=== PATIENT | male | born 1950 | race Caucasian/White ===

== ENCOUNTER → 2017-05-04 | Outpatient (CLI) | payer BC ==
[~2017-05-04] MED LIST: ACAR50; ACYC800; AMLO10 PO; ASPI325; ASPI81EC PO; ATOR20 PO; ATOR40TA PO; AZIT250 PO; CARDURA PO; CARV25 PO; COUMADIN PO; CYCL10 PO; Cardura2 MG PO; Cefpodoxime Pr200 MG PO; DABI75 PO; DIAZ5 PO; DILT180; DILT180 PO; DILT360ER; DOXA2 PO; DOXA4; DOXA4 PO; FURO20; FURO40 PO; GABA600 PO; GLIM4; GLIM4 PO; HYDACE5; HYDACE5 PO; HYDR1TAB94 PO; IBAN2.5 PO; INSULANI; JARDIANCE10 MG PO; JARDIANCE25 MG PO; K-Dur20 MEQ; LATA.005SO BOTHEYES; LISI20; LISI20 PO; LISI5 PO; LISINOPRIL 40MG PO; METF500 PO; METF500C; NAPR500 PO; NAPR550 PO; OMEP20ER; OMEP20ER PO; OXYACE5T PO; Ondansetron Odt8 MG SL; PIOG15; PIOG45 PO; POTA10T PO; POTASSIUM CHLORIDE 40 MEQ PO; PRAVACHOL 40 MG PO; PREG300 PO; Periogard473 ML MM; Prilosec Otc20 MG PO; RXCYCL10 PO; RXHYDACE PO; RXOXYACE PO; TIMO.5OPSO BOTHEYES; TRAM50; Tasprin325 MG PO; WARF2 PO; XARELTO20 MG PO; XTANDI40 MG PO; Zofran Odt4 MG SL; [UNRECOGNIZED DRUG - CODE] PO; [UNRECOGNIZED DRUG - OTHER]
== END ==
LOC: LAB SHORT 07:11 → PLD 07:11 → ATC 07:11 → EDSTATUS 07:44
DX: R31.9 Hematuria, unspecified (principal)
CPT/HCPCS: 88108

== ENCOUNTER 2017-05-11 08:00 | Day surgery (SDC) | payer BC ==
[~2017-05-11 08:00] MED LIST changes: -ACAR50; -ACYC800; -AZIT250 PO; -Cefpodoxime Pr200 MG PO; -DOXA2 PO; -Ondansetron Odt8 MG SL; -PREG300 PO; -TRAM50; -XTANDI40 MG PO; -Zofran Odt4 MG SL; -[UNRECOGNIZED DRUG - CODE] PO
[2017-12-16] MEDS ORDERED: Zofran Odt4 MG SL (11:26)
== END 2017-05-11 11:00 | disposition home or self-care (01) ==
LOC: WOUND 08:00
DX: Z48.00 Encounter for change or removal of nonsurgical wound dressing (principal); N30.11 Interstitial cystitis (chronic) with hematuria; E11.59 Type 2 diabetes mellitus with other circulatory complications; I25.84 Coronary atherosclerosis due to calcified coronary lesion; I42.9 Cardiomyopathy, unspecified; I48.2 Chronic atrial fibrillation
CPT/HCPCS: G0463

== ENCOUNTER 2017-07-27 00:20 | Day surgery (SDC) | payer BC ==
[~2017-07-27 00:20] MED LIST changes: +Prilosec Otc20 MG; -Prilosec Otc20 MG PO
== END 2017-07-27 22:45 | disposition home or self-care (01) ==
LOC: WOUND 00:20
DX: Z48.00 Encounter for change or removal of nonsurgical wound dressing (principal); E11.59 Type 2 diabetes mellitus with other circulatory complications; N30.41 Irradiation cystitis with hematuria; I25.84 Coronary atherosclerosis due to calcified coronary lesion; I42.8 Other cardiomyopathies; I48.2 Chronic atrial fibrillation
CPT/HCPCS: G0463

== ENCOUNTER 2017-07-29 01:16 | Day surgery (SDC) | payer BC | END 2017-07-29 22:40 | disposition home or self-care (01) | LOC: HBO 01:16 → WOUND 10:31 → HBO 11:02 | PROC: 5A05221 Extracorporeal Hyperbaric Oxygenation, Continuous (ICD-10-PCS; principal; 2017-07-29) | DX: N30.41 Irradiation cystitis with hematuria (principal); E11.59 Type 2 diabetes mellitus with other circulatory complications | CPT/HCPCS: 82947; G0277 ==

== ENCOUNTER 2017-07-30 11:42 | Day surgery (SDC) | payer BC | END 2017-07-30 22:48 | disposition home or self-care (01) | LOC: HBO 11:42 | PROC: 5A05221 Extracorporeal Hyperbaric Oxygenation, Continuous (ICD-10-PCS; principal; 2017-07-30) | DX: N30.41 Irradiation cystitis with hematuria (principal); E11.59 Type 2 diabetes mellitus with other circulatory complications; I25.84 Coronary atherosclerosis due to calcified coronary lesion | CPT/HCPCS: 82947; G0277 ==

== ENCOUNTER 2017-08-03 07:58 | Day surgery (SDC) | payer BC | END 2017-08-03 12:22 | disposition home or self-care (01) | LOC: HBO 07:58 → WOUND 11:43 → HBO 11:52 | PROC: 5A05221 Extracorporeal Hyperbaric Oxygenation, Continuous (ICD-10-PCS; principal; 2017-08-03) | DX: N30.41 Irradiation cystitis with hematuria (principal); E11.59 Type 2 diabetes mellitus with other circulatory complications; I25.84 Coronary atherosclerosis due to calcified coronary lesion | CPT/HCPCS: 82947; G0277 ==

== ENCOUNTER 2017-08-10 00:25 | Day surgery (SDC) | payer BC | END 2017-08-10 22:51 | disposition home or self-care (01) | LOC: HBO 00:25 | PROC: 5A05221 Extracorporeal Hyperbaric Oxygenation, Continuous (ICD-10-PCS; principal; 2017-08-10) | DX: N30.41 Irradiation cystitis with hematuria (principal); E11.59 Type 2 diabetes mellitus with other circulatory complications; I25.84 Coronary atherosclerosis due to calcified coronary lesion | CPT/HCPCS: 82947; G0277 ==

== ENCOUNTER 2017-08-12 00:06 | Day surgery (SDC) | payer BC | END 2017-08-12 22:37 | disposition home or self-care (01) | LOC: HBO 00:06 | PROC: 5A05221 Extracorporeal Hyperbaric Oxygenation, Continuous (ICD-10-PCS; principal; 2017-08-12) | DX: N30.41 Irradiation cystitis with hematuria (principal); E11.59 Type 2 diabetes mellitus with other circulatory complications; I25.84 Coronary atherosclerosis due to calcified coronary lesion | CPT/HCPCS: 82947; G0277 ==

== ENCOUNTER 2017-08-13 00:06 | Day surgery (SDC) | payer BC | END 2017-08-13 22:58 | disposition home or self-care (01) | LOC: HBO 00:06 | PROC: 5A05221 Extracorporeal Hyperbaric Oxygenation, Continuous (ICD-10-PCS; principal; 2017-08-13) | DX: N30.41 Irradiation cystitis with hematuria (principal); E11.59 Type 2 diabetes mellitus with other circulatory complications; I25.84 Coronary atherosclerosis due to calcified coronary lesion | CPT/HCPCS: 82947; G0277 ==

== ENCOUNTER 2017-08-17 00:21 | Day surgery (SDC) | payer BC | END 2017-08-17 22:52 | disposition home or self-care (01) | LOC: HBO 00:21 | PROC: 5A05221 Extracorporeal Hyperbaric Oxygenation, Continuous (ICD-10-PCS; principal; 2017-08-17) | DX: N30.41 Irradiation cystitis with hematuria (principal); E11.59 Type 2 diabetes mellitus with other circulatory complications; I25.84 Coronary atherosclerosis due to calcified coronary lesion | CPT/HCPCS: 82947; G0277 ==

== ENCOUNTER 2017-08-23 07:30 | Day surgery (SDC) | payer BC | END 2017-08-23 22:37 | disposition home or self-care (01) | LOC: HBO 07:30 | PROC: 5A05221 Extracorporeal Hyperbaric Oxygenation, Continuous (ICD-10-PCS; principal; 2017-08-23) | DX: N30.41 Irradiation cystitis with hematuria (principal); E11.59 Type 2 diabetes mellitus with other circulatory complications; I25.84 Coronary atherosclerosis due to calcified coronary lesion | CPT/HCPCS: 82947; G0277 ==

== ENCOUNTER 2017-08-24 00:54 | Day surgery (SDC) | payer BC | END 2017-08-24 23:35 | disposition home or self-care (01) | LOC: HBO 00:54 | PROC: 5A05221 Extracorporeal Hyperbaric Oxygenation, Continuous (ICD-10-PCS; principal; 2017-08-24) | DX: N30.41 Irradiation cystitis with hematuria (principal); E11.69 Type 2 diabetes mellitus with other specified complication; I25.84 Coronary atherosclerosis due to calcified coronary lesion | CPT/HCPCS: 82947; G0277 ==

== ENCOUNTER 2017-08-26 12:28 | Day surgery (SDC) | payer BC | END 2017-08-26 23:10 | disposition home or self-care (01) | LOC: HBO 12:28 | PROC: 5A05221 Extracorporeal Hyperbaric Oxygenation, Continuous (ICD-10-PCS; principal; 2017-08-26) | DX: N30.41 Irradiation cystitis with hematuria (principal); E11.59 Type 2 diabetes mellitus with other circulatory complications; I25.84 Coronary atherosclerosis due to calcified coronary lesion | CPT/HCPCS: 82947; G0277 ==

== ENCOUNTER 2017-08-26 16:47 | Day surgery (SDC) | payer BC | END 2017-08-26 23:11 | disposition home or self-care (01) | LOC: WOUND 16:47 | DX: Z48.00 Encounter for change or removal of nonsurgical wound dressing (principal); N30.41 Irradiation cystitis with hematuria; E11.59 Type 2 diabetes mellitus with other circulatory complications; I25.84 Coronary atherosclerosis due to calcified coronary lesion | CPT/HCPCS: G0463 ==

== ENCOUNTER 2017-08-31 00:28 | Day surgery (SDC) | payer BC | END 2017-08-31 22:45 | disposition home or self-care (01) | LOC: HBO 00:28 | PROC: 5A05221 Extracorporeal Hyperbaric Oxygenation, Continuous (ICD-10-PCS; principal; 2017-08-31) | DX: N30.41 Irradiation cystitis with hematuria (principal); E11.59 Type 2 diabetes mellitus with other circulatory complications; I25.84 Coronary atherosclerosis due to calcified coronary lesion | CPT/HCPCS: 82947; G0277 ==

== ENCOUNTER 2017-09-03 12:23 | Day surgery (SDC) | payer BC | END 2017-09-03 22:43 | disposition home or self-care (01) | LOC: HBO 12:23 | PROC: 5A05221 Extracorporeal Hyperbaric Oxygenation, Continuous (ICD-10-PCS; principal; 2017-09-03) | DX: N30.41 Irradiation cystitis with hematuria (principal); E11.59 Type 2 diabetes mellitus with other circulatory complications; I25.84 Coronary atherosclerosis due to calcified coronary lesion | CPT/HCPCS: 82947; G0277 ==

== ENCOUNTER 2017-09-13 08:00 | Day surgery (SDC) | payer BC | END 2017-09-13 11:21 | disposition home or self-care (01) | LOC: HBO 08:00 | PROC: 5A05221 Extracorporeal Hyperbaric Oxygenation, Continuous (ICD-10-PCS; principal; 2017-09-13) | DX: N30.41 Irradiation cystitis with hematuria (principal); E11.59 Type 2 diabetes mellitus with other circulatory complications; I25.84 Coronary atherosclerosis due to calcified coronary lesion | CPT/HCPCS: 82947; G0277 ==

== ENCOUNTER 2017-09-14 12:30 | Day surgery (SDC) | payer BC | END 2017-09-14 15:00 | disposition home or self-care (01) | LOC: HBO 12:30 | DX: N30.41 Irradiation cystitis with hematuria (principal); E11.59 Type 2 diabetes mellitus with other circulatory complications; I25.84 Coronary atherosclerosis due to calcified coronary lesion | CPT/HCPCS: 82947 ==

== ENCOUNTER 2017-09-16 08:00 | Day surgery (SDC) | payer BC | END 2017-09-16 11:08 | disposition home or self-care (01) | LOC: HBO 08:00 | PROC: 5A05221 Extracorporeal Hyperbaric Oxygenation, Continuous (ICD-10-PCS; principal; 2017-09-16) | DX: N30.41 Irradiation cystitis with hematuria (principal); E11.59 Type 2 diabetes mellitus with other circulatory complications; I25.84 Coronary atherosclerosis due to calcified coronary lesion | CPT/HCPCS: 82947; G0277 ==

== ENCOUNTER 2017-09-21 07:45 | Day surgery (SDC) | payer BC | END 2017-09-21 11:15 | disposition home or self-care (01) | LOC: HBO 07:45 → WOUND 08:09 → HBO 08:10 | PROC: 5A05221 Extracorporeal Hyperbaric Oxygenation, Continuous (ICD-10-PCS; principal; 2017-09-21) | DX: N30.41 Irradiation cystitis with hematuria (principal); E11.59 Type 2 diabetes mellitus with other circulatory complications; I25.84 Coronary atherosclerosis due to calcified coronary lesion | CPT/HCPCS: 82947; G0277 ==

== ENCOUNTER 2017-09-21 11:17 | Day surgery (SDC) | payer BC | END 2017-09-21 11:38 | disposition home or self-care (01) | LOC: HBO → WOUND 11:17 | DX: Z48.00 Encounter for change or removal of nonsurgical wound dressing (principal); N30.41 Irradiation cystitis with hematuria; E11.59 Type 2 diabetes mellitus with other circulatory complications; I25.84 Coronary atherosclerosis due to calcified coronary lesion | CPT/HCPCS: G0463 ==

== ENCOUNTER 2017-09-29 07:42 | Day surgery (SDC) | payer BC | END 2017-09-29 22:40 | disposition home or self-care (01) | LOC: HBO | PROC: 5A05221 Extracorporeal Hyperbaric Oxygenation, Continuous (ICD-10-PCS; principal; 2017-09-29) | DX: N30.41 Irradiation cystitis with hematuria (principal); E11.59 Type 2 diabetes mellitus with other circulatory complications; I25.84 Coronary atherosclerosis due to calcified coronary lesion | CPT/HCPCS: 82947; G0277 ==

== ENCOUNTER 2017-10-04 08:29 | Day surgery (SDC) | payer BC | END 2017-10-04 11:58 | disposition home or self-care (01) | LOC: HBO 08:29 | DX: N30.41 Irradiation cystitis with hematuria (principal); E11.59 Type 2 diabetes mellitus with other circulatory complications; I25.84 Coronary atherosclerosis due to calcified coronary lesion | CPT/HCPCS: 82947; G0277 ==

== ENCOUNTER 2017-12-17 15:28 | Inpatient (IN) | payer BC, MEDICARE ==
[~2017-12-17] VITALS: Ht 180.3 cm; Wt 92.2 kg
[~2017-12-17 15:28] MED LIST changes: -Prilosec Otc20 MG; +Prilosec Otc20 MG PO; +Zofran Odt4 MG SL
[2017-12-17 17:39] LABS: International Normalized Ratio 1.16; Prothrombin Time Results 11.8 Sec (9.7-11.5)
[2017-12-17 17:41] LABS: Source, Urine Clean Catch
[2017-12-17 18:00] LABS: Bilirubin, Urine Neg (Neg); Blood, Urine 5+ (Neg); Glucose Qualitative, Urine 4+ (Neg); Ketones, Urine Neg (Neg); Leukocyte Esterase, Urine Neg (Neg); Nitrite, Urine Neg (Neg); Protein, Urine 1+ (Neg); Urobilinogen, Urine NORM (Normal)
[2017-12-17 18:14] LABS: Appearance, Urine Hazy (Clear); Color, Urine Yellow (P-Yellow)
[2017-12-17 18:15] LABS: Bacteria Few /hpf; Red Blood Cells, Urine 50-100 /hpf (0-2); Squamous Epithelial Cells Not Seen /hpf (Few); White Blood Cells, Urine 0-2 /hpf (0-5)
[2017-12-17] MEDS ORDERED: [UNRECOGNIZED DRUG - CODE] PO (18:32)
[2017-12-17] MEDS ORDERED: LISI20 PO (21:19)
[2017-12-17] MEDS ORDERED: PREG300 PO (21:20)
[2017-12-17] MEDS ORDERED: ACYC800 (21:22)
[2017-12-17] MEDS ORDERED: TRAM50 (21:24)
[2017-12-17] MEDS ORDERED: ACAR50 (21:25)
[2017-12-17] MEDS ORDERED: XTANDI40 MG PO (21:27)
[2017-12-18 04:03] LABS: Hematocrit 33.2 % (37.0-53.0); Hemoglobin 10.5 g/dL (13.5-17.5); Mean Corpuscular HGB 27.4 pg (26.0-34.0); Mean Corpuscular HGB Conc 31.6 g/dL (31.5-36.5); Mean Corpuscular Volume 87 fL (80-100); Mean Platelet Volume 9.1 fL (9.1-12.4); Platelet Count 108 K/mm3 (150-400); RDW Coefficient Variation 17.4 % (11.7-14.2); RDW Standard Deviation 55.8 fL (35.1-46.3); Red Blood Cell Count 3.83 M/mm3 (4.30-5.90); White Blood Cell Count 1.66 K/mm3 (4.00-11.30)
[2017-12-18 04:23] LABS: Alanine Aminotransfer (ALT/SGP 19 U/L (12-78); Albumin, Blood 2.3 g/dL (3.4-5.0); Albumin/Globulin Ratio 0.7 (0.8-1.8); Alk Phos 169 U/L (50-136); Anion Gap 7 mmol/L (6-16); Aspartate Aminotrans (AST/SGOT 24 U/L (12-37); Bilirubin, Total 0.6 mg/dL (0.1-1.0); Blood Urea Nitrogen 18 mg/dL (8-24); Bun/Creatinine Ratio 22.3 (12.0-20.0); CO2, Blood 23 mmol/L (21-32); Calcium, Blood 7.8 mg/dL (8.5-10.1); Chloride, Blood 109 mmol/L (98-108); Creatinine, Blood 0.81 mg/dL (0.60-1.20); Globulin, Blood 3.5 g/dL (2.2-4.0); Glomerular Filtration Rate >60 (60-); Glucose, Blood 123 mg/dL (70-99); Potassium, Blood 3.9 mmol/L (3.5-5.5); Sodium, Blood 139 mmol/L (136-145); Total Protein, Blood 5.8 g/dL (6.4-8.2)
[2017-12-18 05:02] LABS: BAND PERCENT MAN 6 % (0-8); BASOPHILS PERCENT MAN 0 % (0-2); EOSINOPHILS ABSOLUTE MAN 0.08 K/mm3 (0.00-0.68); EOSINOPHILS PERCENT MAN 5 % (0-6); LYMPHOCYTES ABSOLUTE MAN 0.34 K/mm3 (0.84-5.20); LYMPHOCYTES PERCENT MAN 21 % (21-46); METAMYELOCYTE ABSOLUTE MAN 0.01 K/mm3 (0.00-0.00); METAMYELOCYTE PERCENT MAN 1 % (0-0); MONOCYTES ABSOLUTE MAN 0.29 K/mm3 (0.16-1.47); MONOCYTES PERCENT MAN 18 % (4-13); NEUTROPHILS ABSOLUTE MAN 0.91 K/mm3 (1.96-9.15); SEG NEUTROPHILS PERCENT MAN 49 % (41-73); TOTAL CELLS COUNTED 100
[2017-12-19 04:59] LABS: BASOPHILS ABSOLUTE AUTO 0.01 K/mm3 (0.00-0.23); BASOPHILS PERCENT AUTO 1 % (0-2); EOSINOPHILS ABSOLUTE AUTO 0.01 K/mm3 (0.00-0.68); EOSINOPHILS PERCENT AUTO 1 % (0-6); Hematocrit 34.9 % (37.0-53.0); Hemoglobin 11.3 g/dL (13.5-17.5); Mean Corpuscular HGB 27.8 pg (26.0-34.0); Mean Corpuscular HGB Conc 32.4 g/dL (31.5-36.5); Mean Corpuscular Volume 86 fL (80-100); Mean Platelet Volume 9.3 fL (9.1-12.4); Platelet Count 114 K/mm3 (150-400); RDW Coefficient Variation 17.2 % (11.7-14.2); RDW Standard Deviation 55.1 fL (35.1-46.3); Red Blood Cell Count 4.06 M/mm3 (4.30-5.90); White Blood Cell Count 1.68 K/mm3 (4.00-11.30)
[2017-12-19 05:00] LABS: IMMATURE GRAN PERCENT AUTO 0 % (0-1); LYMPHOCYTES PERCENT AUTO 30 % (21-46); MONOCYTES PERCENT AUTO 6 % (4-13); NEUTROPHILS ABSOLUTE AUTO 1.06 K/mm3 (1.96-9.15); NEUTROPHILS PERCENT AUTO 63 % (41-73)
[2017-12-19 05:15] LABS: Anion Gap 8 mmol/L (6-16); Blood Urea Nitrogen 20 mg/dL (8-24); Bun/Creatinine Ratio 25.4 (12.0-20.0); CO2, Blood 23 mmol/L (21-32); Calcium, Blood 8.2 mg/dL (8.5-10.1); Chloride, Blood 107 mmol/L (98-108); Creatinine, Blood 0.79 mg/dL (0.60-1.20); Glomerular Filtration Rate >60 (60-); Glucose, Blood 253 mg/dL (70-99); Potassium, Blood 4.5 mmol/L (3.5-5.5); Sodium, Blood 138 mmol/L (136-145)
[2017-12-20 04:42] LABS: BASOPHILS ABSOLUTE AUTO 0.01 K/mm3 (0.00-0.23); BASOPHILS PERCENT AUTO 0 % (0-2); EOSINOPHILS ABSOLUTE AUTO 0.01 K/mm3 (0.00-0.68); EOSINOPHILS PERCENT AUTO 0 % (0-6); Hematocrit 33.7 % (37.0-53.0); Hemoglobin 10.9 g/dL (13.5-17.5); Mean Corpuscular HGB Conc 32.3 g/dL (31.5-36.5); Mean Corpuscular Volume 84 fL (80-100); Mean Platelet Volume 9.7 fL (9.1-12.4); Platelet Count 132 K/mm3 (150-400); RDW Coefficient Variation 17.1 % (11.7-14.2); RDW Standard Deviation 51.9 fL (35.1-46.3); Red Blood Cell Count 4.03 M/mm3 (4.30-5.90); White Blood Cell Count 5.57 K/mm3 (4.00-11.30)
[2017-12-20 04:44] LABS: IMMATURE GRAN ABSOLUTE AUTO 0.01 K/mm3 (0.00-0.10); IMMATURE GRAN PERCENT AUTO 0 % (0-1); LYMPHOCYTES ABSOLUTE AUTO 1.63 K/mm3 (0.84-5.20); LYMPHOCYTES PERCENT AUTO 29 % (21-46); MONOCYTES ABSOLUTE AUTO 0.52 K/mm3 (0.16-1.47); MONOCYTES PERCENT AUTO 9 % (4-13); NEUTROPHILS ABSOLUTE AUTO 3.39 K/mm3 (1.96-9.15); NEUTROPHILS PERCENT AUTO 61 % (41-73)
[2017-12-20 05:00] LABS: Albumin, Blood 2.3 g/dL (3.4-5.0); Anion Gap 6 mmol/L (6-16); Blood Urea Nitrogen 22 mg/dL (8-24); Bun/Creatinine Ratio 32.2 (12.0-20.0); CO2, Blood 24 mmol/L (21-32); Chloride, Blood 108 mmol/L (98-108); Creatinine, Blood 0.68 mg/dL (0.60-1.20); Glomerular Filtration Rate >60 (60-); Glucose, Blood 215 mg/dL (70-99); Phosphorus, Blood 2.9 mg/dL (2.5-4.9); Potassium, Blood 4.1 mmol/L (3.5-5.5); Sodium, Blood 138 mmol/L (136-145)
[2017-12-20] MEDS ORDERED: Ondansetron Odt8 MG SL (11:01)
[2017-12-20] MEDS ORDERED: AZIT250 PO (11:03)
[2017-12-20] MEDS ORDERED: Cefpodoxime Pr200 MG PO (11:30)
[2017-12-20] MEDS ORDERED: DOXA2 PO (11:34)
== END 2017-12-20 15:10 | disposition home or self-care (01) | DRG 871 ==
LOC: ER 15:28 → MEDS 16:19 → ENPENDDIS 12-20 09:30 → MEDS 12-20 15:10
PROVIDERS: Internal Medicine
DX: A41.9 Sepsis, unspecified organism (principal); J18.9 Pneumonia, unspecified organism; D61.818 Other pancytopenia; I50.22 Chronic systolic (congestive) heart failure; K21.9 Gastro-esophageal reflux disease without esophagitis; I11.0 Hypertensive heart disease with heart failure; E11.9 Type 2 diabetes mellitus without complications; R31.9 Hematuria, unspecified; I48.2 Chronic atrial fibrillation; I25.10 Atherosclerotic heart disease of native coronary artery without angina pectoris; E78.5 Hyperlipidemia, unspecified; Z95.5 Presence of coronary angioplasty implant and graft; Z95.0 Presence of cardiac pacemaker; Z85.46 Personal history of malignant neoplasm of prostate; I25.2 Old myocardial infarction; Z90.79 Acquired absence of other genital organ(s); Z87.891 Personal history of nicotine dependence; Z79.899 Other long term (current) drug therapy
CPT/HCPCS: 36415; 71046; 80048; 80053; 80069; 81001; 82043; 82947; 83036; 83605; 83690; 84145; 85025; 85610; 85651; 85730; 86140; 87040; 87077; 87086; 87186; 87804; 94760; 99284; J0456; J0696; J1815; J2920; J3370; J7030; J7050

== ENCOUNTER 2018-04-13 12:10 | Day surgery (SDC) | payer BC ==
[~2018-04-13 12:10] MED LIST changes: +ACAR50; +ACYC800; +AZIT250 PO; -CARV25 PO; +CARV6.25 PO; +Cefpodoxime Pr200 MG PO; +DOXA2 PO; +Ondansetron Odt8 MG SL; +PREG300 PO; +TRAM50; +XTANDI40 MG PO; +[UNRECOGNIZED DRUG - CODE] PO
== END 2018-04-13 12:53 | disposition home or self-care (01) ==
LOC: WOUND 12:10
DX: N30.41 Irradiation cystitis with hematuria (principal); I50.9 Heart failure, unspecified; E11.59 Type 2 diabetes mellitus with other circulatory complications; Z85.46 Personal history of malignant neoplasm of prostate
CPT/HCPCS: G0463

== ENCOUNTER → 2018-05-05 | Outpatient (CLI) | payer BC ==
[~2018-05-05] MED LIST changes: +ACET325 PO; +ACYC800 PO; +ALBU90OI61 INH; +Aspirin EC81 MG PO; +CIPR500 PO; +ELIQUIS2.5 MG PO; +FERRETTS325 MG PO; +FURO20 PO; +HYDR25SUP PR; +METF500C PO; +Nortriptyline H10 MG PO; +Nystatin15 GM TOP; +Oxycodone-Apap1 EAC3 PO; +POTCHL10ER PO; +Percocet 5-3251 EACH PO; +Pyridium100 MG PO; +TAMS.4ER PO; +TRULICITY1.5 MG/0.5 SC; +VALACYCLOVIR1000 MG PO
== END | disposition home or self-care (01) ==
LOC: LAB SHORT 17:45 → LAB EV 17:45
DX: N39.0 Urinary tract infection, site not specified (principal)
CPT/HCPCS: 87077; 87086; 87186

== ENCOUNTER 2018-05-06 22:03 | Emergency (ER) | payer BC ==
[~2018-05-06] VITALS: Ht 177.8 cm; Wt 90.7 kg
[~2018-05-06 22:03] MED LIST changes: -ACET325 PO; -ACYC800 PO; -ALBU90OI61 INH; -Aspirin EC81 MG PO; -CIPR500 PO; -ELIQUIS2.5 MG PO; -FERRETTS325 MG PO; -FURO20 PO; -HYDR25SUP PR; -METF500C PO; -Nortriptyline H10 MG PO; -Nystatin15 GM TOP; -Oxycodone-Apap1 EAC3 PO; -POTCHL10ER PO; -Percocet 5-3251 EACH PO; -Pyridium100 MG PO; -TAMS.4ER PO; -TRULICITY1.5 MG/0.5 SC; -VALACYCLOVIR1000 MG PO
[2018-05-06 22:22] LABS: Source, Urine Clean Catch
[2018-05-06] MEDS ORDERED: Nortriptyline H10 MG PO (22:24)
[2018-05-06] MEDS ORDERED: Pyridium100 MG PO (22:24)
[2018-05-06] MEDS ORDERED: CIPR500 PO (22:24)
[2018-05-06 22:25] LABS: Bilirubin, Urine Neg (Neg); Blood, Urine 5+ (Neg); Glucose Qualitative, Urine 4+ (Neg); Ketones, Urine Neg (Neg); Leukocyte Esterase, Urine 1+ (Neg); Nitrite, Urine Pos (Neg); Protein, Urine 3+ (Neg); Urobilinogen, Urine 1+ (Normal)
[2018-05-06] MEDS ORDERED: METF500C PO (22:25)
[2018-05-06 22:26] LABS: BASOPHILS ABSOLUTE AUTO 0.04 K/mm3 (0.00-0.23); BASOPHILS PERCENT AUTO 1 % (0-2); EOSINOPHILS ABSOLUTE AUTO 0.11 K/mm3 (0.00-0.68); EOSINOPHILS PERCENT AUTO 2 % (0-6); Hematocrit 28.4 % (37.0-53.0); Hemoglobin 8.1 g/dL (13.5-17.5); IMMATURE GRAN ABSOLUTE AUTO 0.01 K/mm3 (0.00-0.10); IMMATURE GRAN PERCENT AUTO 0 % (0-1); LYMPHOCYTES ABSOLUTE AUTO 0.89 K/mm3 (0.84-5.20); LYMPHOCYTES PERCENT AUTO 17 % (21-46); MONOCYTES ABSOLUTE AUTO 0.84 K/mm3 (0.16-1.47); MONOCYTES PERCENT AUTO 16 % (4-13); Mean Corpuscular HGB Conc 28.5 g/dL (31.5-36.5); Mean Corpuscular Volume 77 fL (80-100); Mean Platelet Volume 10.4 fL (9.1-12.4); NEUTROPHILS ABSOLUTE AUTO 3.51 K/mm3 (1.96-9.15); NEUTROPHILS PERCENT AUTO 65 % (41-73); NRBC ABSOLUTE 0.02 K/mm3 (0.00-0.02); NRBC Auto 0.4 /100 WBC (0.0-0.2); Platelet Count 247 K/mm3 (150-400); RDW Coefficient Variation 17.9 % (11.7-14.2); RDW Standard Deviation 49.8 fL (35.1-46.3); Red Blood Cell Count 3.69 M/mm3 (4.30-5.90)
[2018-05-06] MEDS ORDERED: VALACYCLOVIR1000 MG PO (22:26)
[2018-05-06] MEDS ORDERED: FURO20 PO (22:29)
[2018-05-06] MEDS ORDERED: POTCHL10ER PO (22:29)
[2018-05-06 22:31] LABS: Appearance, Urine Hazy (Clear); Color, Urine Amber (P-Yellow)
[2018-05-06 22:33] LABS: Bacteria Few /hpf; Red Blood Cells, Urine TNTC /hpf (0-2); Squamous Epithelial Cells Not Seen /hpf (Few)
[2018-05-06 22:38] LABS: Alanine Aminotransfer (ALT/SGP 11 U/L (12-78); Albumin, Blood 3.2 g/dL (3.4-5.0); Albumin/Globulin Ratio 0.9 (0.8-1.8); Alk Phos 81 U/L (50-136); Anion Gap 11 mmol/L (6-16); Aspartate Aminotrans (AST/SGOT 14 U/L (12-37); Bilirubin, Total 0.7 mg/dL (0.1-1.0); Blood Urea Nitrogen 21 mg/dL (8-24); Bun/Creatinine Ratio 18.6 (12.0-20.0); CO2, Blood 20 mmol/L (21-32); Calcium, Blood 8.4 mg/dL (8.5-10.1); Chloride, Blood 108 mmol/L (98-108); Creatinine, Blood 1.13 mg/dL (0.60-1.20); Globulin, Blood 3.6 g/dL (2.2-4.0); Glomerular Filtration Rate >60 (60-); Glucose, Blood 174 mg/dL (70-99); Sodium, Blood 139 mmol/L (136-145); Total Protein, Blood 6.8 g/dL (6.4-8.2)
== END 2018-05-07 02:55 | disposition short-term general hospital (02) ==
LOC: ER 22:03
PROVIDERS: Emergency Medicine
DX: N39.0 Urinary tract infection, site not specified (principal); R31.9 Hematuria, unspecified; D64.9 Anemia, unspecified; E11.9 Type 2 diabetes mellitus without complications; E78.5 Hyperlipidemia, unspecified; K21.9 Gastro-esophageal reflux disease without esophagitis; I48.91 Unspecified atrial fibrillation; I25.2 Old myocardial infarction; I10 Essential (primary) hypertension; I25.10 Atherosclerotic heart disease of native coronary artery without angina pectoris; Z87.891 Personal history of nicotine dependence
CPT/HCPCS: 36415; 51798; 72193; 80053; 81001; 85025; 87086; 99285-25; Q9967

== ENCOUNTER 2018-05-10 08:55 | Day surgery (SDC) | payer BC ==
[~2018-05-10 08:55] MED LIST changes: +CIPR500 PO; +FURO20 PO; +METF500C PO; +Nortriptyline H10 MG PO; +POTCHL10ER PO; +Pyridium100 MG PO; +VALACYCLOVIR1000 MG PO
== END 2018-05-10 22:35 | disposition home or self-care (01) ==
LOC: HBO 08:55
DX: N30.41 Irradiation cystitis with hematuria (principal); I50.9 Heart failure, unspecified; E11.59 Type 2 diabetes mellitus with other circulatory complications; Z85.46 Personal history of malignant neoplasm of prostate
CPT/HCPCS: 82947; G0277

== ENCOUNTER 2018-05-11 00:17 | Day surgery (SDC) | payer BC | END 2018-05-11 22:36 | disposition home or self-care (01) | LOC: HBO 00:17 | DX: N30.41 Irradiation cystitis with hematuria (principal); I50.9 Heart failure, unspecified; E11.59 Type 2 diabetes mellitus with other circulatory complications; Z85.46 Personal history of malignant neoplasm of prostate | CPT/HCPCS: 82947; G0277 ==

== ENCOUNTER 2018-05-12 00:34 | Day surgery (SDC) | payer BC ==
[~2018-05-12 00:34] MED LIST changes: -ACET325 PO; -ACYC800 PO; -ALBU90OI61 INH; -Aspirin EC81 MG PO; -ELIQUIS2.5 MG PO; -FERRETTS325 MG PO; -HYDR25SUP PR; -Nystatin15 GM TOP; -Oxycodone-Apap1 EAC3 PO; -Percocet 5-3251 EACH PO; -TAMS.4ER PO; -TRULICITY1.5 MG/0.5 SC
== END 2018-05-12 23:57 | disposition home or self-care (01) ==
LOC: HBO 00:34 → WOUND 15:16 → HBO 15:20
PROC: 5A05221 Extracorporeal Hyperbaric Oxygenation, Continuous (ICD-10-PCS; principal; 2018-05-12)
DX: N30.41 Irradiation cystitis with hematuria (principal); E11.59 Type 2 diabetes mellitus with other circulatory complications; Z85.46 Personal history of malignant neoplasm of prostate; I50.9 Heart failure, unspecified
CPT/HCPCS: 82947; G0277

== ENCOUNTER → 2018-05-12 | Outpatient (CLI) | payer BC, MEDICARE ==
[~2018-05-12] MED LIST changes: +ACET325 PO; +ACYC800 PO; +ALBU90OI61 INH; +Aspirin EC81 MG PO; +ELIQUIS2.5 MG PO; +FERRETTS325 MG PO; +HYDR25SUP PR; +Nystatin15 GM TOP; +Oxycodone-Apap1 EAC3 PO; +Percocet 5-3251 EACH PO; +TAMS.4ER PO; +TRULICITY1.5 MG/0.5 SC
== END ==
LOC: LAB EV 11:40 → LAB SHORT 11:40
DX: N39.0 Urinary tract infection, site not specified (principal)
CPT/HCPCS: 87086

== ENCOUNTER 2018-05-16 08:00 | Day surgery (SDC) | payer BC ==
[~2018-05-16 08:00] MED LIST changes: -ACET325 PO; -ACYC800 PO; -ALBU90OI61 INH; -Aspirin EC81 MG PO; -ELIQUIS2.5 MG PO; -FERRETTS325 MG PO; -HYDR25SUP PR; -Nystatin15 GM TOP; -Oxycodone-Apap1 EAC3 PO; -Percocet 5-3251 EACH PO; -TAMS.4ER PO; -TRULICITY1.5 MG/0.5 SC
== END 2018-05-16 22:36 | disposition home or self-care (01) ==
LOC: HBO 08:00
DX: N30.41 Irradiation cystitis with hematuria (principal); I50.9 Heart failure, unspecified; E11.59 Type 2 diabetes mellitus with other circulatory complications
CPT/HCPCS: 82947; G0277

== ENCOUNTER → 2018-05-16 | Outpatient (CLI) | payer BC, MEDICARE ==
[~2018-05-16] MED LIST changes: +ACET325 PO; +ACYC800 PO; +ALBU90OI61 INH; +Aspirin EC81 MG PO; +ELIQUIS2.5 MG PO; +FERRETTS325 MG PO; +HYDR25SUP PR; +Nystatin15 GM TOP; +Oxycodone-Apap1 EAC3 PO; +Percocet 5-3251 EACH PO; +TAMS.4ER PO; +TRULICITY1.5 MG/0.5 SC
== END | disposition home or self-care (01) ==
LOC: LAB SHORT 16:55 → LAB EV 16:55
DX: R31.9 Hematuria, unspecified (principal)
CPT/HCPCS: 87086

== ENCOUNTER 2018-05-17 00:07 | Day surgery (SDC) | payer BC | END 2018-05-17 22:56 | disposition home or self-care (01) | LOC: HBO 00:07 | DX: N30.41 Irradiation cystitis with hematuria (principal); I50.9 Heart failure, unspecified; E11.59 Type 2 diabetes mellitus with other circulatory complications; Z85.46 Personal history of malignant neoplasm of prostate | CPT/HCPCS: 82947; G0277 ==

== ENCOUNTER 2018-05-18 00:11 | Day surgery (SDC) | payer BC | END 2018-05-18 22:39 | disposition home or self-care (01) | LOC: HBO 00:11 | DX: N30.41 Irradiation cystitis with hematuria (principal); I50.9 Heart failure, unspecified; E11.59 Type 2 diabetes mellitus with other circulatory complications; Z85.46 Personal history of malignant neoplasm of prostate; Z79.84 Long term (current) use of oral hypoglycemic drugs | CPT/HCPCS: 82947; G0277 ==

== ENCOUNTER 2018-05-19 07:40 | Day surgery (SDC) | payer BC | END 2018-05-19 22:50 | disposition home or self-care (01) | LOC: HBO 07:40 → WOUND 13:36 → HBO 22:50 | DX: N30.41 Irradiation cystitis with hematuria (principal); I50.9 Heart failure, unspecified; E11.59 Type 2 diabetes mellitus with other circulatory complications; Z85.46 Personal history of malignant neoplasm of prostate; Z79.84 Long term (current) use of oral hypoglycemic drugs | CPT/HCPCS: 82947; G0277 ==

== ENCOUNTER 2018-05-20 07:30 | Day surgery (SDC) | payer BC | END 2018-05-20 23:05 | disposition home or self-care (01) | LOC: HBO 07:30 | DX: N30.41 Irradiation cystitis with hematuria (principal); I50.9 Heart failure, unspecified; E11.59 Type 2 diabetes mellitus with other circulatory complications; Z85.46 Personal history of malignant neoplasm of prostate | CPT/HCPCS: 82947; G0277 ==

== ENCOUNTER 2018-05-23 07:30 | Day surgery (SDC) | payer BC | END 2018-05-23 22:46 | disposition home or self-care (01) | LOC: HBO 07:30 | DX: N30.41 Irradiation cystitis with hematuria (principal); I50.9 Heart failure, unspecified; E11.59 Type 2 diabetes mellitus with other circulatory complications; Z85.46 Personal history of malignant neoplasm of prostate; Z79.84 Long term (current) use of oral hypoglycemic drugs | CPT/HCPCS: 82947; G0277 ==

== ENCOUNTER 2018-05-24 07:30 | Day surgery (SDC) | payer BC | END 2018-05-24 22:45 | disposition home or self-care (01) | LOC: HBO 07:30 | DX: N30.41 Irradiation cystitis with hematuria (principal); I50.9 Heart failure, unspecified; E11.59 Type 2 diabetes mellitus with other circulatory complications; Z85.46 Personal history of malignant neoplasm of prostate; Z79.84 Long term (current) use of oral hypoglycemic drugs | CPT/HCPCS: 82947; G0277 ==

== ENCOUNTER 2018-05-25 07:30 | Day surgery (SDC) | payer BC | END 2018-05-25 22:45 | disposition home or self-care (01) | LOC: HBO 07:30 | DX: N30.41 Irradiation cystitis with hematuria (principal); I50.9 Heart failure, unspecified; E11.59 Type 2 diabetes mellitus with other circulatory complications; Z85.46 Personal history of malignant neoplasm of prostate; Z79.84 Long term (current) use of oral hypoglycemic drugs | CPT/HCPCS: 82947; G0277 ==

== ENCOUNTER 2018-05-26 07:35 | Day surgery (SDC) | payer BC | END 2018-05-26 23:02 | disposition home or self-care (01) | LOC: HBO 07:35 | DX: N30.41 Irradiation cystitis with hematuria (principal); I50.9 Heart failure, unspecified; E11.59 Type 2 diabetes mellitus with other circulatory complications; Z85.46 Personal history of malignant neoplasm of prostate; Z79.84 Long term (current) use of oral hypoglycemic drugs | CPT/HCPCS: 82947; G0277 ==

== ENCOUNTER 2018-05-27 07:35 | Day surgery (SDC) | payer OTHER, BC | END 2018-05-27 10:00 | disposition home or self-care (01) | LOC: HBO 07:35 | DX: L59.8 Other specified disorders of the skin and subcutaneous tissue related to radiation (principal); N30.41 Irradiation cystitis with hematuria; I50.9 Heart failure, unspecified; E11.59 Type 2 diabetes mellitus with other circulatory complications; Z85.46 Personal history of malignant neoplasm of prostate | CPT/HCPCS: 82947; G0277 ==

== ENCOUNTER 2018-05-30 08:00 | Day surgery (SDC) | payer OTHER, BC | END 2018-05-30 22:39 | disposition home or self-care (01) | LOC: HBO 08:00 | DX: N30.41 Irradiation cystitis with hematuria (principal); I50.9 Heart failure, unspecified; E11.59 Type 2 diabetes mellitus with other circulatory complications; Z85.46 Personal history of malignant neoplasm of prostate | CPT/HCPCS: 82947; G0277 ==

== ENCOUNTER 2018-05-31 07:30 | Day surgery (SDC) | payer OTHER, BC ==
[2018-06-01] MEDS ORDERED: TAMS.4ER PO (09:49)
[2018-06-01] MEDS ORDERED: Oxycodone-Apap1 EAC3 PO (09:50)
[2018-06-01] MEDS ORDERED: Aspirin EC81 MG PO (16:00)
[2018-06-01] MEDS ORDERED: FERRETTS325 MG PO (16:03)
[2018-06-01] MEDS ORDERED: TRULICITY1.5 MG/0.5 SC (16:07)
[2018-06-01] MEDS ORDERED: ALBU90OI61 INH (16:08)
[2018-06-01] MEDS ORDERED: Nystatin15 GM TOP (16:09)
== END 2018-05-31 22:42 | disposition home or self-care (01) ==
LOC: HBO 07:30
DX: N30.41 Irradiation cystitis with hematuria (principal); I50.9 Heart failure, unspecified; E11.59 Type 2 diabetes mellitus with other circulatory complications; Z85.46 Personal history of malignant neoplasm of prostate
CPT/HCPCS: 82947; G0277

== ENCOUNTER 2018-06-01 09:01 | Observation (INO) | payer OTHER, BC ==
[~2018-06-01] VITALS: Ht 182.9 cm; Wt 91.0 kg
[2018-06-01 09:49] LABS: BASOPHILS ABSOLUTE AUTO 0.03 K/mm3 (0.00-0.23); BASOPHILS PERCENT AUTO 1 % (0-2); EOSINOPHILS ABSOLUTE AUTO 0.12 K/mm3 (0.00-0.68); EOSINOPHILS PERCENT AUTO 4 % (0-6); Hematocrit 36.1 % (37.0-53.0); Hemoglobin 10.7 g/dL (13.5-17.5); IMMATURE GRAN PERCENT AUTO 0 % (0-1); LYMPHOCYTES PERCENT AUTO 18 % (21-46); MONOCYTES PERCENT AUTO 18 % (4-13); Mean Corpuscular HGB Conc 29.6 g/dL (31.5-36.5); Mean Corpuscular Volume 78 fL (80-100); Mean Platelet Volume 9.6 fL (9.1-12.4); NEUTROPHILS ABSOLUTE AUTO 1.57 K/mm3 (1.96-9.15); NEUTROPHILS PERCENT AUTO 58 % (41-73); Platelet Count 183 K/mm3 (150-400); RDW Coefficient Variation 21.4 % (11.7-14.2); RDW Standard Deviation 58.9 fL (35.1-46.3); Red Blood Cell Count 4.66 M/mm3 (4.30-5.90); White Blood Cell Count 2.72 K/mm3 (4.00-11.30)
[2018-06-01] MEDS ORDERED: TAMS.4ER PO (09:49)
[2018-06-01] MEDS ORDERED: Oxycodone-Apap1 EAC3 PO (09:50)
[2018-06-01 10:29] LABS: Source, Urine Voided
[2018-06-01 10:33] LABS: Appearance, Urine Clear (Clear); Bilirubin, Urine Neg (Neg); Blood, Urine Neg (Neg); Color, Urine Yellow (P-Yellow); Glucose Qualitative, Urine 4+ (Neg); Ketones, Urine Neg (Neg); Leukocyte Esterase, Urine Neg (Neg); Nitrite, Urine Neg (Neg); Protein, Urine Neg (Neg); Urobilinogen, Urine NORM (Normal)
[2018-06-01 10:44] LABS: Alanine Aminotransfer (ALT/SGP 15 U/L (12-78); Albumin/Globulin Ratio 0.8 (0.8-1.8); Alk Phos 95 U/L (50-136); Anion Gap 7 mmol/L (6-16); Aspartate Aminotrans (AST/SGOT 14 U/L (12-37); Bilirubin, Total 0.5 mg/dL (0.1-1.0); Blood Urea Nitrogen 14 mg/dL (8-24); Bun/Creatinine Ratio 17.8 (12.0-20.0); CO2, Blood 26 mmol/L (21-32); Calcium, Blood 8.8 mg/dL (8.5-10.1); Chloride, Blood 102 mmol/L (98-108); Creatinine, Blood 0.79 mg/dL (0.60-1.20); Globulin, Blood 3.8 g/dL (2.2-4.0); Glomerular Filtration Rate >60 (60-); Glucose, Blood 337 mg/dL (70-99); Potassium, Blood 4.1 mmol/L (3.5-5.5); Sodium, Blood 135 mmol/L (136-145); Total Protein, Blood 6.8 g/dL (6.4-8.2); Troponin I 0.103 ng/mL (0.000-0.040)
[2018-06-01] MEDS ORDERED: Aspirin EC81 MG PO (16:00)
[2018-06-01] MEDS ORDERED: FERRETTS325 MG PO (16:03)
[2018-06-01] MEDS ORDERED: TRULICITY1.5 MG/0.5 SC (16:07)
[2018-06-01] MEDS ORDERED: ALBU90OI61 INH (16:08)
[2018-06-01] MEDS ORDERED: Nystatin15 GM TOP (16:09)
--- NOTE | 2018-06-01 18:34 | NUR ---
PT ARRIVED TO THE MEDICAL FLOOR AROUND 1630 FROM THE ER, A/OX3, PLEASANT AND COOPERATIVE, THE PT AMBULATED FROM THE GURNY TO THE BED WITH MINIMAL ASSISTANCE, THE PT WAS ORIENTED TO THE ROOM LAYOUT AND CALL SYSTEM, THE PT REFUSED HIS XEALTO AND METFORMIN TONIGHT STATING THAT HIS DOCTOR HAD DC'D BOTH OF THOSE MEDICATIONS, THE PT HAS ATRIAL FIB AND A PACER/ DEFIBULATOR, AT THE BEDSIDE AT THIS TIME, THE PT WAS MEDICATED FOR HEAD ACHE PAIN, CALL LIGHT IN REACH
--- NOTE | 2018-06-02 04:35 | NUR ---
SHIFT SUMMARY PT A&O, SITTING UP IN BED DURING SHIFT REPORT. IN RM AT BS. PT ADMITTED FOR EXPRESSIVE APHAGIA, WHICH WAS NOTED WHILE AT THE ATC FOR HYPERBARIC OXYGEN TX. PT REPORTED AT HS THAT THIS HAS BEEN GOING ON FOR A WHILE, OFF AND ON. PT HAS A HX OF TESTICULAR CA AND PROSTATE CA. PT'S MED REC REMAINS INCOMPLETE HE AND HIS ARE UNCLEAR WHICH MEDICATIONS HE IS TO BE TAKING. PT WITH HX OF AFIB BUT DENIES BEING ON ANTICOAG. PT ALSO REPORTED THAT HE IS DIABETIC BUT DOES NOT TAKE METFORMIN. PER SHIFT REPORT, DR CLARK TO SEE PT TODAY AND CLEAR UP HOME MEDICATION LIST. NEURO CHECKS NEG, EXCEPT FOR EXPRESSIVE APHAGIA. PT REPORTED THAT HIS VISION HAD IMPROVED BY EVENING, FROM EARLIER IN THE DAY. PT TO HAVE MRI TODAY; FORM COMPLETED AND FAXED TO IMAGING. BED ALARM PLACED AT START OF SHIFT, PT IS SLIGHTLY UNSTEADY WHEN FIRST GETTING UP. DECLINED USING FWW WELL. SBA TO BTHRM AND BACK TO BED. CALL LT IN REACH.
[2018-06-02 06:00] LABS: CHOL/HDL RATIO 3.3; Cholesterol 109 mg/dL (50-200); HDL Cholesterol 33 mg/dL (>39); LDL/HDL RATIO 1.5; Low Density Lipoprotein Chol 50 mg/dL (0-110); Triglycerides 131 mg/dL (30-160); Very Low Density Lipoprot Chol 26 mg/dL (6-32)
--- NOTE | 2018-06-02 15:59 | NUR ---
PT IS A/OX3, PLEASANT AND COOPERATIVE, THE PT IS UP IND IN HIS ROOM, THE PT AMBULATED INTO THE LINARES WITH MINIMAL STANDBY ASSIST, MILDY SOB WITH ACTIVITY, THE PT WAS MEDICATED FOR PAIN SCHEDULED, PT REPORTED HEAD ACHE AND BACK OF NECK PAIN, PT APPEARED TO BE SPEAKING CLEARLY TODAY MINIMAL IF ANY SPEECH APHAGIA NOTICED TODAY, CALL LIGHT IN REACH, WILL CONTINUE TO MONITOR AND ASSESS FOR CHANGES
[2018-06-02] MEDS ORDERED: ACET325 PO (17:42)
[2018-06-02] MEDS ORDERED: ACYC800 PO (17:43)
[2018-06-02] MEDS ORDERED: ELIQUIS2.5 MG PO (17:44)
--- NOTE | 2018-06-02 19:33 | NUR ---
pt discharged the pt verbalized understanding of the discharge instructions, perscriptions faxed to [facility] as requested, pt was a/ox3, appeared to be breathing easily at dc, pt transfered via wheelchair accompanied by his and the geospatial information scientist
== END 2018-06-02 18:23 | disposition home or self-care (01) ==
LOC: ER 09:01 → MEDS 09:02 → ENPENDDIS 06-02 17:02 → MEDS 06-02 18:23
PROVIDERS: Emergency Medicine; ADMIT Internal Medicine
DX: G45.9 Transient cerebral ischemic attack, unspecified (principal); I25.10 Atherosclerotic heart disease of native coronary artery without angina pectoris; E11.9 Type 2 diabetes mellitus without complications; E78.5 Hyperlipidemia, unspecified; I48.91 Unspecified atrial fibrillation; I50.22 Chronic systolic (congestive) heart failure; R31.9 Hematuria, unspecified; D61.818 Other pancytopenia; R77.8 Other specified abnormalities of plasma proteins; I42.0 Dilated cardiomyopathy; I35.0 Nonrheumatic aortic (valve) stenosis; C79.51 Secondary malignant neoplasm of bone; C61 Malignant neoplasm of prostate; I21.9 Acute myocardial infarction, unspecified; Z87.891 Personal history of nicotine dependence; Z79.899 Other long term (current) drug therapy
CPT/HCPCS: 36415; 70450; 70496; 70498; 74018; 80053; 80061; 81003; 82947; 83036; 84484; 85025; 93005; 93010; 94761; 96374; 96375; 96376; 97161; 97165; 97530; 99285-25; C8923; G0378; J2405; J3010; Q9957; Q9967

== ENCOUNTER 2018-06-16 11:40 | Emergency (ER) | payer OTHER ==
[~2018-06-16] VITALS: Ht 177.8 cm; Wt 86.2 kg
[~2018-06-16 11:40] MED LIST changes: +ACET325 PO; +ACYC800 PO; +ALBU90OI61 INH; +Aspirin EC81 MG PO; +ELIQUIS2.5 MG PO; +FERRETTS325 MG PO; +Nystatin15 GM TOP; +Oxycodone-Apap1 EAC3 PO; +TAMS.4ER PO; +TRULICITY1.5 MG/0.5 SC
[2018-06-16 12:41] LABS: BASOPHILS ABSOLUTE AUTO 0.01 K/mm3 (0.00-0.23); BASOPHILS PERCENT AUTO 0 % (0-2); EOSINOPHILS ABSOLUTE AUTO 0.09 K/mm3 (0.00-0.68); EOSINOPHILS PERCENT AUTO 2 % (0-6); Hematocrit 44.6 % (37.0-53.0); IMMATURE GRAN ABSOLUTE AUTO 0.01 K/mm3 (0.00-0.10); IMMATURE GRAN PERCENT AUTO 0 % (0-1); LYMPHOCYTES ABSOLUTE AUTO 0.57 K/mm3 (0.84-5.20); LYMPHOCYTES PERCENT AUTO 10 % (21-46); MONOCYTES ABSOLUTE AUTO 0.07 K/mm3 (0.16-1.47); MONOCYTES PERCENT AUTO 1 % (4-13); Mean Corpuscular HGB 24.5 pg (26.0-34.0); Mean Corpuscular HGB Conc 31.4 g/dL (31.5-36.5); Mean Corpuscular Volume 78 fL (80-100); Mean Platelet Volume 9.9 fL (9.1-12.4); NEUTROPHILS ABSOLUTE AUTO 4.82 K/mm3 (1.96-9.15); NEUTROPHILS PERCENT AUTO 87 % (41-73); Platelet Count 168 K/mm3 (150-400); RDW Coefficient Variation 22.8 % (11.7-14.2); RDW Standard Deviation 62.4 fL (35.1-46.3); Red Blood Cell Count 5.71 M/mm3 (4.30-5.90); White Blood Cell Count 5.57 K/mm3 (4.00-11.30)
[2018-06-16 13:04] LABS: Prothrombin Time Results 10.6 Sec (9.7-11.5)
[2018-06-16 13:12] LABS: Alanine Aminotransfer (ALT/SGP 20 U/L (12-78); Albumin, Blood 3.5 g/dL (3.4-5.0); Albumin/Globulin Ratio 0.9 (0.8-1.8); Alk Phos 103 U/L (50-136); Anion Gap 8 mmol/L (6-16); Aspartate Aminotrans (AST/SGOT 23 U/L (12-37); Bilirubin, Total 1.8 mg/dL (0.1-1.0); Blood Urea Nitrogen 27 mg/dL (8-24); Bun/Creatinine Ratio 34.3 (12.0-20.0); CO2, Blood 24 mmol/L (21-32); Calcium, Blood 8.4 mg/dL (8.5-10.1); Chloride, Blood 100 mmol/L (98-108); Creatinine, Blood 0.79 mg/dL (0.60-1.20); Globulin, Blood 4.1 g/dL (2.2-4.0); Glomerular Filtration Rate >60 (60-); Glucose, Blood 415 mg/dL (70-99); Potassium, Blood 4.6 mmol/L (3.5-5.5); Sodium, Blood 132 mmol/L (136-145); Total Protein, Blood 7.6 g/dL (6.4-8.2)
[2018-06-16] MEDS ORDERED: HYDR25SUP PR (16:32)
[2018-06-16] MEDS ORDERED: Percocet 5-3251 EACH PO (17:34)
== END 2018-06-16 17:47 | disposition home or self-care (01) ==
LOC: ER 11:40
PROVIDERS: Physician Assistant
DX: R52 Pain, unspecified (principal); K64.9 Unspecified hemorrhoids; Z86.73 Personal history of transient ischemic attack (TIA), and cerebral infarction without residual deficits; I48.91 Unspecified atrial fibrillation; I50.9 Heart failure, unspecified; E11.9 Type 2 diabetes mellitus without complications; E78.5 Hyperlipidemia, unspecified; Z87.891 Personal history of nicotine dependence
CPT/HCPCS: 36415; 80053; 85025; 85610; 85730; 86850; 86900; 86901; 96374; 99283-25; J0456; J0696; J1170; J1815; J7050

== ENCOUNTER 2018-06-17 14:38 | Inpatient (IN) | payer OTHER, BC ==
[~2018-06-17] VITALS: Ht 177.8 cm; Wt 86.5 kg
[~2018-06-17 14:38] MED LIST changes: +HYDR25SUP PR; +Percocet 5-3251 EACH PO
[2018-06-17 15:08] LABS: BASOPHILS ABSOLUTE AUTO 0.01 K/mm3 (0.00-0.23); BASOPHILS PERCENT AUTO 0 % (0-2); EOSINOPHILS ABSOLUTE AUTO 0.03 K/mm3 (0.00-0.68); EOSINOPHILS PERCENT AUTO 1 % (0-6); Hematocrit 42.1 % (37.0-53.0); Mean Corpuscular HGB 23.9 pg (26.0-34.0); Mean Corpuscular HGB Conc 30.9 g/dL (31.5-36.5); Mean Corpuscular Volume 78 fL (80-100); Platelet Count 137 K/mm3 (150-400); RDW Coefficient Variation 22.1 % (11.7-14.2); RDW Standard Deviation 61.7 fL (35.1-46.3); Red Blood Cell Count 5.43 M/mm3 (4.30-5.90)
[2018-06-17 15:13] LABS: IMMATURE GRAN ABSOLUTE AUTO 0.01 K/mm3 (0.00-0.10); IMMATURE GRAN PERCENT AUTO 0 % (0-1); LYMPHOCYTES ABSOLUTE AUTO 0.49 K/mm3 (0.84-5.20); LYMPHOCYTES PERCENT AUTO 11 % (21-46); MONOCYTES ABSOLUTE AUTO 0.06 K/mm3 (0.16-1.47); MONOCYTES PERCENT AUTO 1 % (4-13); Mean Platelet Volume 10.3 fL (9.1-12.4); NEUTROPHILS PERCENT AUTO 87 % (41-73)
[2018-06-17 15:40] LABS: Anion Gap 11 mmol/L (6-16); Blood Urea Nitrogen 26 mg/dL (8-24); Bun/Creatinine Ratio 35.9 (12.0-20.0); CO2, Blood 19 mmol/L (21-32); Calcium, Blood 8.2 mg/dL (8.5-10.1); Chloride, Blood 101 mmol/L (98-108); Creatinine, Blood 0.73 mg/dL (0.60-1.20); Glomerular Filtration Rate >60 (60-); Glucose, Blood 508 mg/dL (70-99); Potassium, Blood 4.9 mmol/L (3.5-5.5); Sodium, Blood 131 mmol/L (136-145)
--- NOTE | 2018-06-17 18:33 | NUR ---
SUMMARY PT ADMIT FROM THE ER, ALERT AND ORIENTED, STANDBY ASSIST, ORIENTED TO ROOM AND CALL SYSTEM
--- NOTE | 2018-06-18 04:06 | NUR ---
SHIFT SUMMARY ADMIT AT SHIFT CHANGE. PATIENT MEDICATED SEVERAL TIMES IN ORDER TO GET PAIN UNDER CONTROL. PATIENT DENIES NAUSEA OR SHORTNESS OF BREATH. PATIENT ABLE TO SLEEP THE SECOND HALF OF THE NIGHT. CALL LIGHT IN REACH, WILL CONTINE TO MONITOR.
[2018-06-18 05:56] LABS: Albumin, Blood 2.7 g/dL (3.4-5.0); Anion Gap 6 mmol/L (6-16); Blood Urea Nitrogen 24 mg/dL (8-24); Bun/Creatinine Ratio 30.2 (12.0-20.0); CO2, Blood 23 mmol/L (21-32); Calcium, Blood 7.8 mg/dL (8.5-10.1); Chloride, Blood 107 mmol/L (98-108); Creatinine, Blood 0.79 mg/dL (0.60-1.20); Glomerular Filtration Rate >60 (60-); Glucose, Blood 277 mg/dL (70-99); Phosphorus, Blood 2.7 mg/dL (2.5-4.9); Potassium, Blood 4.6 mmol/L (3.5-5.5); Sodium, Blood 136 mmol/L (136-145)
--- NOTE | 2018-06-18 17:05 | NUR ---
SUMMARY- PT INDEPENDANT TO BATHROOM. DR THOMAS IN THIS AM TO SEE PT. CHANGED PAIN MEDS TO STAY AWAY FROM DILAUDID SO TO MIMIC WHAT HE WOULD DO AT HOME. INCREASED OXYCODONE WHICH IS COVERING HIS PAIN SINCE CHANGE. PT DESCRIBES PAIN IN LE FEELS LIKE NAJERA SPLINTS HE USED TO GET WHEN HE WAS YOUNG AND WOULD RUN TOO MUCH. ALSO LOW BACK ACHE. PT VOIDING WITHOUD DIFFICULTY, HAS PINK URINE. MIGUEL BURNING. STATED THAT DR DONALDSON ORDERED CIPRO- RAN BY DR. BURTON AND BECAUSE PT IS ASYMPTOMATIC, WILL OPT TO NOT TX WITH ABX. IN TO VISIT PT FROM 1330 UNTIL 1630. PT TOLERATING FOOD AND FLUIDS.
--- NOTE | 2018-06-18 19:22 | NUR ---
PAIN CONTROL PT WITH C/O 810 PAIN TO SHINS AND BOTTOMS OF FEET. PAIN MEDICATION ADMINISTERED JUST AFTER 1800. WARM BLANKETS WRAPPED AROUND PT SHINS AND FEET. PT STATED THAT WARM BLANKETS WORDED WELL.
--- NOTE | 2018-06-19 05:07 | NUR ---
SHIFT SUMMARY PT ADMITTED FOR INTRACTABLE PAIN AND HYPERGLYCEMIA. FULL CODE. ADA LACTOSE FREE DIET. CBG @ AC AND HS WITH HS CHECK BETWEEN 10 AND 11 BUT COMPLETED A BIT EARLY THIS NIGHT DUE TO TIMING OF CLUSTERING CARE. PACEMAKER. ELIQUIS FOR HX OF CHRONIC A-FIB. 20 G IV TO L HAND. INDEPENDENT IN ROOM. MEDS WHOLE WITH WATER. URINE IS DARK TEA COLORED. THE PT PRESENTED TO THE ED WITH C/O INCREASED DIFFUSE MUSCULOSKELETAL PAIN FOR SEVERAL DAYS. THE PT WITH METASTATIC PROSTATED CANCER AND POORLY CONTROLLED TYPE 2 DIABETES. PER REPORT THE PT ALSO PRESENTS WITH METS TO THE BONE. PT IS FOLLOWED BY DR. KENDRICK FOR ONCOLOGY. APPARENTLY THE PT HAS A LONG HX OF CANCER. THE PTS PRIMARY CONCEARN THIS NIGHT HAS BEEN PAIN MANAGMENT THE PT REPORTED VERY POOR PAIN CONTROL THROUGHOUT THE DAY. THE PT REPORTED PAIN AT A 14/10 ON PAIN SCALE BUT ATTEMPTED TO STOP TAKING IV PAIN MEDS IN PREPARATION FOR DISCHARGE. THE PT STATED WANTING TO TRY A HEATING PAD. WRAPPED EACH LEG AND FOOT WITH WARM BLANKET JUST TO DETERMINE IF ANY RELIEF, WHICH THE PT INITIALLY STATED SOME RELIEF BUT LATER SAID THAT HE JUST COULD NOT HANDLE HAVING ANYTHING EXTRA WEIGHING ON HIS LEGS. DUE TO INABIITY TO ADMINISTER ORAL MEDICATION AND DISTRACTION, REPOSITION, AND HEAT NOT EFFECTIVE, ADMINISTERED IV PAIN MEDICATION X1 IN ATTEMPT TO GAIN MANAGMENT OF PAIN. ADMINISTERED ORAL MEDS PER EMAR EVERY 3-3.5 HOURS AND PT REPORTS MUCH BETTER PAIN CONTROL THROUGHOUT THE SHIFT. THE PT CURRENTLY APPEARS TO BE SLEEPING COMFORTABLY WITH NO APPARENT SIGNS OF ACUTE DISTRESS. ABLE TO MAKE NEEDS KNOWN AND CALL LIGHT IN REACH.
[2018-06-19 05:58] LABS: Albumin, Blood 2.5 g/dL (3.4-5.0); Anion Gap 8 mmol/L (6-16); Blood Urea Nitrogen 17 mg/dL (8-24); CO2, Blood 22 mmol/L (21-32); Calcium, Blood 7.5 mg/dL (8.5-10.1); Chloride, Blood 105 mmol/L (98-108); Creatinine, Blood 0.66 mg/dL (0.60-1.20); Glomerular Filtration Rate >60 (60-); Glucose, Blood 203 mg/dL (70-99); Potassium, Blood 4.2 mmol/L (3.5-5.5); Sodium, Blood 135 mmol/L (136-145)
--- NOTE | 2018-06-19 10:28 | NUR ---
LACTOSE FREE DIET DR. THOMAS CALLED IN REGARDS ON THE PT DIET. PT STATES HE IS NOT LACTOSE INTOLERANT, BUT HAS A LACTOSE FREE DIET. STATED THAT PT MAY NOT HAVE MILK BUT OTHER LACTOSE PRODUCTS ARE FINE.
--- NOTE | 2018-06-19 16:32 | NUR ---
SHIFT SUMMARY PT NOW RECIEVING 40MG OXY QHPRN. PT ONLY NEED IV DILADID ONCE THIS SHIFT FOR BREAKTHROUGH PAIN. PT STATES THIS PAIN IS MUCH BETTER MANAGED TODAY. PT MEDICATED WITH OXY X3 THIS SHIFT. PT STATED HE WAS CONTIPATED THIS AM. PT MEDICATED PER BOWEL PROTICOL. PT HAS HAD 2 BM THIS SHIFT. PT UP TO AMBULATE IN THE HALLWAY THIS SHIFT. PT TOLERATED WELL. NO OTHER CHANGES IN ASSESSMENT AT THIS TIME. VSS. PT CONTINUES TO BE TACHYCARDIC. AFTERNOON COREG GIVEN. PT CONTINUES TO VOID TEA COLORED URINE WITH SMALL BLOOD CLOTS. DR. THOMAS AWARE. WILL CONTINUE TO MONITOR UNTIL TURNOVER IS COMPLETE. COPY OF ADVANCED DIRECTIVE PLACED IN CHART.
--- NOTE | 2018-06-19 17:46 | NUR ---
FIELD START PT REFUSED TO HAVE WORKING FEILD START REMOVED.
--- NOTE | 2018-06-20 04:00 | NUR ---
SHIFT SUMMARY NO APPARENT ACUTE CHANGES NOTED SO FAR THIS SHIFT. PAIN MANAGEMENT CONTINUES TO BE A PROBLEM FOR PT DESPITE ADMINISTRATION OF ORAL MEDS GIVEN EARLY POSSIBLE AND IV MEDS ADMINISTERED X1. THE PT STATES THAT HE CANNOT GO HOME WHILE IN THIS MUCH PAIN. DAY NURSE REPORTED TALKING TO THE HOSPITALIST ABOUT AN EXTENDED RELEASE MANAGMENT APPROACH BUT REPORT MD DID NOT AGREE. PT WOULD LIKE ATTEMPT AN EXTENDED RELEASE MEDS IF POSSIBLE TO ATTEMPT TO MANAGE PAIN BETTER. WILL SEND OFF IN REPORT TO DAY NURSE AND WROTE ON BOARD FOR A GOAL. THE PT WAS UP TO THE BR JUST A FEW MINUTES AGO. NO APPARENT SIGNS OF ACUTE DISTRESS. ABLE TO MAKE NEEDS KNOWN AND CALL LIGHT IN REACH.
[2018-06-20 05:51] LABS: Anion Gap 7 mmol/L (6-16); Blood Urea Nitrogen 15 mg/dL (8-24); Bun/Creatinine Ratio 23.1 (12.0-20.0); CO2, Blood 23 mmol/L (21-32); Chloride, Blood 103 mmol/L (98-108); Creatinine, Blood 0.65 mg/dL (0.60-1.20); Glomerular Filtration Rate >60 (60-); Glucose, Blood 239 mg/dL (70-99); Potassium, Blood 4.4 mmol/L (3.5-5.5); Sodium, Blood 133 mmol/L (136-145)
[2018-06-20 05:52] LABS: Albumin, Blood 2.5 g/dL (3.4-5.0); Calcium, Blood 7.4 mg/dL (8.5-10.1); Phosphorus, Blood 1.6 mg/dL (2.5-4.9)
--- NOTE | 2018-06-20 17:14 | NUR ---
SHIFT SUMMARY PT AXO, COOPERATIVE WITH CARE. AT 0930 PT COMPLAINED OF UNBEARABLE PAIN RATING 20/10. NURSE MEDICATED PER EMAR. NURSE DISCUSSED PAIN CONTROL WITH DR THOMAS WHO INITIATED NEW ORDERS AND GAVE NURSE VERBAL ORDERS TO GIVE FIRST DOSE AT THAT TIME. PT HAS BEEN SLEEPING ABSENT OF PAIN SINCE. NEW IV PLACED, PATENT AND SALINE LOCKED. BED IN LOW POSITION, CALL LIGHT WITHIN REACH. PALLIATIVE CARE CALLED WELL. PT STATES THAT HIS CANCER DOCTOR HAS NEVER DISCUSSED END OF LIFE CARE OR EXPECTATIONS ABOUT THIS PHASE OF LIFE.
--- NOTE | 2018-06-21 04:09 | NUR ---
SHIFT SUMMARY: PT IS ALERT AND ORIENTED. PT IS CALM AND COOPERATIVE WITH CARE. PT CALLS APPROPRIATELY. PT IS A STANDBY ASSIST TO THE BATHROOM. PT REPORTS ONGOING BL KNEE PAIN, MEDICATING PER EMAR. PT DENIES NAUSEA, VOMITING, AND SOB. PT SLEPT MUCH OF THE NIGHT WHEN NOT DISTURBED. NO ACUTE CHANGES OVERNIGHT. WILL REPORT TO DAY NURSE.
--- NOTE | 2018-06-21 19:23 | NUR ---
SHIFT SUMMARY PT HAD EXTREME PAIN THIS AM. MEDICATED FOR PAIN PER EMAR WITH PRN AND SCHEDULED PAIN MEDICATIONS. PT WAS VERY SLEEPY AFTER AND SLEPT THE REST OF THE SHIFT UNTIL 1814. PT DID NOT EAT LUNCH. PT STILL SLEEPY AND DISORIENTED. PT APPEARS TO HAVE EFFECTS FROM PAIN MEDICATION. HELD EVENING SCHEDULED DOSE DUE TO SEDATION. NO ACUTE DISTRESS THIS EVENING. REPORT GIVEN TO RAE RN. CALL LIGHT IN REACH AND BED ALARM ON FOR SAFETY.
--- NOTE | 2018-06-22 04:34 | NUR ---
SHIFT SUMMARY PT CONTINUES TO BE "OUT OF IT" THIS EVENING. MILDLY CONFUSED W/ INTERMITTENT HALLUCINATING. MEDICATED W/ BEDTIME DOSE OF 40 MG OXYCONTIN FOR REPORTED PAIN OF 8-9/10 IN BLE'S AND LOWER BACK. PT VERY DROWSY AFTER OXYCONTIN. UP ONCE TO VOID, UNSTEADY ON HIS FEET, CONTINUES TO HAVE HEMATURIA. HALLUCINATING WHILE IN THE BATHROOM REPORTING THAT THERE WERE MEN IN THE BATHROOM WITH HIM. BLOOD SUGAR 156 THIS EVENING, WITH NO COVERAGE NEEDED. WILL MEDICATE FOR PAIN WHEN PT WAKES UP MORE THIS AM. PT RESTING IN BED AT THIS TIME. VSS. WILL CONTINUE TO MONITOR AND REPORT TO DAY RN.
--- NOTE | 2018-06-22 16:26 | NUR ---
PT A/OX3, HAS SOME CONFUSION AND FORGETFULLNES AT TIMES, UP WITH MINIMAL ASSIST THE PT WAS MEDICATED FOR PAIN T/O THE DAY SCHEDULED AND WAS GIVEN BREAKTHROUGH PAIN MEDICATION THIS AM PER HIS REQUEST FOR 02/02 PAIN, THE FAMILY REPORTS CONCERNS THAT THE PT SEEMS DISORIENTED, FAMILY WAS TAUGHT THAT THE PAIN MEDICATION CAN CAUSE THAT AND THAT THE PT PAIN HOWEVER SEEMS TO BE RELIEVED AT THIS TIME, THE PTS COREG WAS HELD THIS AM DUE TO HYPOTENSION, CALL LIGHT IN REACH
--- NOTE | 2018-06-23 05:58 | NUR ---
SHIFT SUMMARY RESPONDS TO VERBAL STIMULI. ANSWERS MOST QUESTIONS APPROPRIATELY. C/O PAIN; MEDICATED PER EMAR. ASKED THIS AM DURING SCHEDULED PAIN MEDICATION; STATED 4/10 PAIN. REFUSED SCHEDULED PAIN MEDICATIONS AT MIDNIGHT AND 0600. APPEARED RESTFUL DURING SHIFT. EXITED BED WITHOUT CALLING FOR HELP SETTING OFF BED ALARM. STATED HAD TO GO TO THE BATHROOM RIGHT THEN AND COULD NOT WAIT. AMBULATION APPEARED WEAK. AMBIVALENT MOOD NOTED; BECOMING ANGRY AND FORGETFUL AT TIMES. PULSE IS TACHYCARDIC; ALL OTHER VITALS WNL. NO ACUTE CHANGES OVERNIGHT. BED IN LOWEST POSITION. CALL LIGHT AND BELONGINGS WITHIN REACH. WCTM. REPORT TO ONCOMING RN.
[2018-06-23 09:03] LABS: BASOPHILS ABSOLUTE AUTO 0.01 K/mm3 (0.00-0.23); BASOPHILS PERCENT AUTO 1 % (0-2); EOSINOPHILS PERCENT AUTO 0 % (0-6); Hematocrit 34.2 % (37.0-53.0); IMMATURE GRAN ABSOLUTE AUTO 0.04 K/mm3 (0.00-0.10); IMMATURE GRAN PERCENT AUTO 2 % (0-1); LYMPHOCYTES ABSOLUTE AUTO 0.42 K/mm3 (0.84-5.20); LYMPHOCYTES PERCENT AUTO 23 % (21-46); MONOCYTES ABSOLUTE AUTO 0.54 K/mm3 (0.16-1.47); MONOCYTES PERCENT AUTO 30 % (4-13); Mean Corpuscular HGB 24.5 pg (26.0-34.0); Mean Corpuscular HGB Conc 32.2 g/dL (31.5-36.5); Mean Corpuscular Volume 76 fL (80-100); Mean Platelet Volume 9.7 fL (9.1-12.4); NEUTROPHILS ABSOLUTE AUTO 0.82 K/mm3 (1.96-9.15); NEUTROPHILS PERCENT AUTO 45 % (41-73); NRBC ABSOLUTE 0.06 K/mm3 (0.00-0.02); NRBC Auto 3.3 /100 WBC (0.0-0.2); Platelet Count 155 K/mm3 (150-400); RDW Coefficient Variation 22.2 % (11.7-14.2); RDW Standard Deviation 61.5 fL (35.1-46.3); Red Blood Cell Count 4.49 M/mm3 (4.30-5.90); White Blood Cell Count 1.83 K/mm3 (4.00-11.30)
[2018-06-23 09:26] LABS: Alanine Aminotransfer (ALT/SGP 16 U/L (12-78); Albumin, Blood 2.1 g/dL (3.4-5.0); Albumin/Globulin Ratio 0.5 (0.8-1.8); Alk Phos 79 U/L (50-136); Anion Gap 10 mmol/L (6-16); Aspartate Aminotrans (AST/SGOT 14 U/L (12-37); Blood Urea Nitrogen 19 mg/dL (8-24); CO2, Blood 22 mmol/L (21-32); Calcium, Blood 6.8 mg/dL (8.5-10.1); Chloride, Blood 96 mmol/L (98-108); Creatinine, Blood 0.73 mg/dL (0.60-1.20); Globulin, Blood 4.1 g/dL (2.2-4.0); Glomerular Filtration Rate >60 (60-); Glucose, Blood 267 mg/dL (70-99); Potassium, Blood 3.6 mmol/L (3.5-5.5); Sodium, Blood 128 mmol/L (136-145); Total Protein, Blood 6.2 g/dL (6.4-8.2)
--- NOTE | 2018-06-23 19:21 | NUR ---
SHIFT SUMMARY: NO ACUTE CHANGES TO REPORT THIS SHIFT. PT A&O; WEAKNESS R/T CHEMO TREATMENT. MEDICATED FOR PAIN PER EMAR. TOP MEDICATION FOR SHINGLES SORES. DR KENDRICK CONSULTED THIS SHIFT; SEE NOTE. PALLIATIVE CARE CONSULT ORDERED. REPORT GIVEN TO ONCOMING RN.
[2018-06-23 22:43] LABS: Hematocrit 33.9 % (37.0-53.0)
--- NOTE | 2018-06-23 23:33 | NUR ---
PHYSICIAN CORRESPONDENCE SPOKE TO ON-CALL R/T PT STATING THAT HE WAS EXPERIENCING INCREASED ARTHRITIC PAIN. ASKING FOR SOME SORT OF CREAM. NEW ORDER FOR ASPERCREAM. [facility].
--- NOTE | 2018-06-24 04:04 | NUR ---
SHIFT SUMMARY A/O, ABLE TO MAKE NEEDS KNOWN. COOPERATIVE WITH CARE. ANSWERS QUESTIONS APPROPRIATELY. EXITS BED WITHOUT CALLING. STEADY GAIT; HOWEVER WEAKEND R/T CONDITION. UP TO BATHROOM SBA. 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 STATED EARLIER THIS EVENING THAT HE FELT THOUGH THERE WAS ANOTHER ONE THERE. ALTHOUGH COULD ALSO BE BLOODY STOOL HE IS INDEPENDENT IN BATHROOM. DID HAVE STRAINING DURING BM'S AND IS ONLY ELIMINATING SMALL AMOUNTS OF STOOL AT A TIME. REMAINS TACHYCARDIC; ALL OTHER VITALS WNL. BED IN LOWEST POSITION. ALARM ON. CALL LIGHT AND BELONGINGS WITHIN REACH. WCTM. REPORT TO ONCOMING RN.
[2018-06-24 05:14] LABS: Hematocrit 33.4 % (37.0-53.0); Hemoglobin 10.8 g/dL (13.5-17.5); Mean Corpuscular HGB 24.4 pg (26.0-34.0); Mean Corpuscular HGB Conc 32.3 g/dL (31.5-36.5); Mean Corpuscular Volume 75 fL (80-100); NRBC ABSOLUTE 0.05 K/mm3 (0.00-0.02); NRBC Auto 0.9 /100 WBC (0.0-0.2); Platelet Count 172 K/mm3 (150-400); RDW Standard Deviation 60.1 fL (35.1-46.3); Red Blood Cell Count 4.43 M/mm3 (4.30-5.90); White Blood Cell Count 5.73 K/mm3 (4.00-11.30)
[2018-06-24 05:40] LABS: Anion Gap 10 mmol/L (6-16); Blood Urea Nitrogen 13 mg/dL (8-24); CO2, Blood 22 mmol/L (21-32); Calcium, Blood 6.9 mg/dL (8.5-10.1); Chloride, Blood 97 mmol/L (98-108); Creatinine, Blood 0.65 mg/dL (0.60-1.20); Glomerular Filtration Rate >60 (60-); Glucose, Blood 248 mg/dL (70-99); Potassium, Blood 3.2 mmol/L (3.5-5.5); Sodium, Blood 129 mmol/L (136-145)
[2018-06-24 06:01] LABS: BAND PERCENT MAN 12 % (0-8); BASOPHILS ABSOLUTE MAN 0.05 K/mm3 (0.00-0.23); BASOPHILS PERCENT MAN 1 % (0-2); EOSINOPHILS PERCENT MAN 0 % (0-6); LYMPHOCYTES ABSOLUTE MAN 0.22 K/mm3 (0.84-5.20); LYMPHOCYTES PERCENT MAN 4 % (21-46); METAMYELOCYTE ABSOLUTE MAN 0.11 K/mm3 (0.00-0.00); METAMYELOCYTE PERCENT MAN 2 % (0-0); MONOCYTES ABSOLUTE MAN 0.85 K/mm3 (0.16-1.47); MONOCYTES PERCENT MAN 15 % (4-13); NEUTROPHILS ABSOLUTE MAN 4.46 K/mm3 (1.96-9.15); SEG NEUTROPHILS PERCENT MAN 66 % (41-73); TOTAL CELLS COUNTED 100
[2018-06-24 08:59] LABS: Percent Saturation 14.3 % (20.0-50.0)
--- NOTE | 2018-06-24 11:55 | NUR ---
Douglas was alert, friendly and conversant. He verbalized existential, metaphysical and jewish concerns. I provided an attentive and empathetic ear, theological and inspirational education, and audible prayer for comfort and resolution of distress. Douglas showed clear signs of interest, consolability and apprpriate emotion. I installed an audio bible resource on his mobile device for easy listening and encouragement.
--- NOTE | 2018-06-24 18:52 | NUR ---
SHIFT SUMMARY: NO ACUTE CHANGES TO REPORT THIS SHIFT. PT A&O; CALM AND COOEPRATIVE WITH CARE. MEDICATED FOR PAIN PER EMAR; PATIENT DECLINING PRN OPIATES R/T CONSTIPATING EFFECT. NO C/O NAUSEA. WEAKNESS R/T RECENT CHEMO TREATMENT; PT UP WITH 1-ASSIST. EXPECTED D/C IN NEXT 24-48 HOURS, PER DR CLARK'S PROGRESS NOTE. WCTM.
[2018-06-24 20:48] LABS: Source, Urine Clean Catch
[2018-06-24 20:58] LABS: Appearance, Urine Hazy (Clear); Bilirubin, Urine Neg (Neg); Blood, Urine 5+ (Neg); Color, Urine Red (P-Yellow); Glucose Qualitative, Urine 2+ (Neg); Ketones, Urine Neg (Neg); Leukocyte Esterase, Urine 1+ (Neg); Nitrite, Urine Pos (Neg); Protein, Urine 3+ (Neg); Specific Gravity, Urine 1.015 (1.003-1.022); Urobilinogen, Urine 1+ (Normal)
[2018-06-24 21:02] LABS: Bacteria Few /hpf; Red Blood Cells, Urine TNTC /hpf (0-2); Squamous Epithelial Cells Not Seen /hpf (Few)
--- NOTE | 2018-06-24 21:40 | NUR ---
PATIENT HAD BLOOD IN URINE WHEN I COLLECTED URINE SAMPLE ALONG WITH A BM AND PATIENT SEEMED TO BE IN PAIN, RN WAS NOTIFIED
--- NOTE | 2018-06-25 04:09 | NUR ---
SHIFT SUMMARY THE PATIENT PRESENT THIS SHIF WITH VITALS WNL, A&O X4 AND WITH CLEAR LUNGS THAT WERE DIM AT THE BASES. THE PATIENT COMPLAINED OF PAIN AND RECEIVED MEDICATIONS PER ORDERS. THE PATIENT WENT TO SLEEP AROUND MID SHIFT AND IS SLEEP AT THIS TIME. WILL CONTINUE TO MONITOR.
[2018-06-25 05:46] LABS: Hematocrit 32.6 % (37.0-53.0); Hemoglobin 10.4 g/dL (13.5-17.5); Mean Corpuscular HGB 24.1 pg (26.0-34.0); Mean Corpuscular HGB Conc 31.9 g/dL (31.5-36.5); Mean Corpuscular Volume 76 fL (80-100); Mean Platelet Volume 9.6 fL (9.1-12.4); NRBC ABSOLUTE 0.08 K/mm3 (0.00-0.02); NRBC Auto 0.8 /100 WBC (0.0-0.2); Platelet Count 188 K/mm3 (150-400); RDW Coefficient Variation 22.9 % (11.7-14.2); RDW Standard Deviation 61.7 fL (35.1-46.3); Red Blood Cell Count 4.31 M/mm3 (4.30-5.90); White Blood Cell Count 9.43 K/mm3 (4.00-11.30)
[2018-06-25 06:35] LABS: Anion Gap 8 mmol/L (6-16); Blood Urea Nitrogen 8 mg/dL (8-24); Bun/Creatinine Ratio 14.8 (12.0-20.0); CO2, Blood 26 mmol/L (21-32); Calcium, Blood 6.6 mg/dL (8.5-10.1); Chloride, Blood 99 mmol/L (98-108); Creatinine, Blood 0.54 mg/dL (0.60-1.20); Glomerular Filtration Rate >60 (60-); Glucose, Blood 147 mg/dL (70-99); Potassium, Blood 3.1 mmol/L (3.5-5.5); Sodium, Blood 133 mmol/L (136-145)
[2018-06-25 06:47] LABS: BAND PERCENT MAN 2 % (0-8); BASOPHILS ABSOLUTE MAN 0.09 K/mm3 (0.00-0.23); BASOPHILS PERCENT MAN 1 % (0-2); EOSINOPHILS PERCENT MAN 0 % (0-6); LYMPHOCYTES ABSOLUTE MAN 1.41 K/mm3 (0.84-5.20); LYMPHOCYTES PERCENT MAN 15 % (21-46); MONOCYTES ABSOLUTE MAN 0.84 K/mm3 (0.16-1.47); MONOCYTES PERCENT MAN 9 % (4-13); MYELOCYTE ABSOLUTE MAN 0.09 K/mm3 (0.00-0.00); MYELOCYTE PERCENT MAN 1 % (0-0); NEUTROPHILS ABSOLUTE MAN 6.97 K/mm3 (1.96-9.15); SEG NEUTROPHILS PERCENT MAN 72 % (41-73); TOTAL CELLS COUNTED 100
--- NOTE | 2018-06-25 11:53 | NUR ---
Initial Visit: Palliative Care Consult for goals of care including end of life care. Pt is A&O and denies pain at this time. He reports current regimen is managing his pain. He also reports refusing his oxycontin this AM due to no pain. Educated Pt on oxycontin and it's intended use as a scheduled medication and not as a breakthrough pain medication. V/U made by Pt. Pt deneis anxiety, depression, and SOB. Pt reports no particular rastafari belief and lives at home alone with his . He denies any concerns for support and reports adequate support between his , neighbors, and friends. Engaged in therapeutic conversation about goals of care. He reports that he is considering no longer pursuing chemotherapy but plans to have further discussions with Dr Hernandez before making a decision. He reports not tolerating his last chemotherapy treatment very well. Educated Pt on end of life care options if he chooses to no longer seek chemo therapy treatment including hospice philosophy. V/U made by Pt. Pt reports no concerns at this time. Spoke with Pt's nurse Jolene and she reports no concerns at this time. Plan is to remain available.
[2018-06-25] MEDS ORDERED: Sm Double Ant28.4 GM TOP (16:28)
[2018-06-25] MEDS ORDERED: OXYC40ER PO (16:30)
[2018-06-25] MEDS ORDERED: LEVFLO500 PO (16:30)
[2018-06-25] MEDS ORDERED: MIRALAX17 GM PO (16:31)
--- NOTE | 2018-06-25 17:14 | NUR ---
DISCHARGE SUMMARY PATIENT A&O X4. INDEP UP TO WHEELCHAIR. DISCHARGE INFORMATION REVIEWED INCLUDING MEDICATIONS, DISCHARGE INSTURCTIONS, AND FOLLOW UP APPOINTMENTS. HARD PRESCRIPTION FOR OXYCODONE HCL 40 MG PO BID SENT WITH PATIENT. MEDICATIONS FAXED TO [facility]. IV D/C, WNL. PATIENTS AT HIS SIDE. TMR TEACHER ESCORTED PATIENT OUT BY WHEELCHAIR, ALL BELONGINGS IN HAND.
== END 2018-06-25 17:05 | disposition home or self-care (01) | DRG 948 ==
LOC: ER 14:38 → MEDS 14:39 → ER 16:18 → MEDS 18:15
PROVIDERS: Emergency Medicine; Family Medicine; Internal Medicine Hematology & Oncology; Nurse Practitioner Acute Care; ADMIT Internal Medicine Endocrinology, Diabetes & Metabolism
DX: G89.3 Neoplasm related pain (acute) (chronic) (principal); C79.51 Secondary malignant neoplasm of bone; I50.22 Chronic systolic (congestive) heart failure; N39.0 Urinary tract infection, site not specified; E87.1 Hypo-osmolality and hyponatremia; C61 Malignant neoplasm of prostate; E11.65 Type 2 diabetes mellitus with hyperglycemia; Z51.5 Encounter for palliative care; E86.0 Dehydration; I48.2 Chronic atrial fibrillation; I11.0 Hypertensive heart disease with heart failure; Z79.4 Long term (current) use of insulin; R31.9 Hematuria, unspecified; K60.2 Anal fissure, unspecified; R33.9 Retention of urine, unspecified; K64.9 Unspecified hemorrhoids; Z79.01 Long term (current) use of anticoagulants; Z85.47 Personal history of malignant neoplasm of testis; I25.2 Old myocardial infarction; Z95.5 Presence of coronary angioplasty implant and graft; Z87.891 Personal history of nicotine dependence; D70.1 Agranulocytosis secondary to cancer chemotherapy; I25.10 Atherosclerotic heart disease of native coronary artery without angina pectoris; Z95.0 Presence of cardiac pacemaker; K21.9 Gastro-esophageal reflux disease without esophagitis; R62.7 Adult failure to thrive; D64.81 Anemia due to antineoplastic chemotherapy; D63.0 Anemia in neoplastic disease; E87.6 Hypokalemia; I69.320 Aphasia following cerebral infarction
CPT/HCPCS: 36415; 46600; 80048; 80053; 80069; 81001; 82728; 82947; 83540; 83550; 83735; 85014; 85018; 85025; 87086; 96361; 96376; 97116; 97161; 99284; G0378; J0696; J1170; J1447; J1815; J7030; J7050

== ENCOUNTER 2018-07-31 11:04 | Emergency (ER) | payer OTHER ==
[~2018-07-31] VITALS: Ht 180.3 cm; Wt 83.9 kg
[~2018-07-31 11:04] MED LIST changes: +LEVFLO500 PO; +MIRALAX17 GM PO; +OXYC40ER PO; +Sm Double Ant28.4 GM TOP
[2018-07-31 12:21] LABS: Hematocrit 32.4 % (37.0-53.0); Hemoglobin 10.6 g/dL (13.5-17.5); Mean Corpuscular HGB 27.2 pg (26.0-34.0); Mean Corpuscular HGB Conc 32.7 g/dL (31.5-36.5); Mean Platelet Volume 9.8 fL (9.1-12.4); Platelet Count 159 K/mm3 (150-400); RDW Coefficient Variation 23.8 % (11.7-14.2); RDW Standard Deviation 73.1 fL (35.1-46.3)
[2018-07-31 12:25] LABS: BASOPHILS ABSOLUTE AUTO 0.03 K/mm3 (0.00-0.23); BASOPHILS PERCENT AUTO 3 % (0-2); EOSINOPHILS PERCENT AUTO 0 % (0-6); IMMATURE GRAN ABSOLUTE AUTO 0.02 K/mm3 (0.00-0.10); IMMATURE GRAN PERCENT AUTO 2 % (0-1); LYMPHOCYTES ABSOLUTE AUTO 0.45 K/mm3 (0.84-5.20); LYMPHOCYTES PERCENT AUTO 51 % (21-46); MONOCYTES ABSOLUTE AUTO 0.03 K/mm3 (0.16-1.47); MONOCYTES PERCENT AUTO 3 % (4-13); NEUTROPHILS ABSOLUTE AUTO 0.36 K/mm3 (1.96-9.15); NEUTROPHILS PERCENT AUTO 40 % (41-73)
[2018-07-31 12:26] LABS: Mean Corpuscular Volume 83 fL (80-100)
[2018-07-31 12:27] LABS: Alanine Aminotransfer (ALT/SGP 15 U/L (12-78); Albumin, Blood 2.9 g/dL (3.4-5.0); Albumin/Globulin Ratio 0.9 (0.8-1.8); Alk Phos 66 U/L (50-136); Anion Gap 8 mmol/L (6-16); Aspartate Aminotrans (AST/SGOT 10 U/L (12-37); Bilirubin, Total 1.1 mg/dL (0.1-1.0); Blood Urea Nitrogen 13 mg/dL (8-24); CO2, Blood 21 mmol/L (21-32); Calcium, Blood 8.2 mg/dL (8.5-10.1); Chloride, Blood 104 mmol/L (98-108); Creatinine, Blood 0.57 mg/dL (0.60-1.20); Globulin, Blood 3.2 g/dL (2.2-4.0); Glomerular Filtration Rate >60 (60-); Glucose, Blood 287 mg/dL (70-99); Potassium, Blood 4.1 mmol/L (3.5-5.5); Sodium, Blood 133 mmol/L (136-145); Total Protein, Blood 6.1 g/dL (6.4-8.2)
[2018-07-31 12:28] LABS: White Blood Cell Count 0.89 K/mm3 (4.00-11.30)
[2018-07-31] MEDS ORDERED: NYSTRITC TOP (12:57)
[2018-07-31] MEDS ORDERED: LISI20 PO (12:57)
[2018-07-31] MEDS ORDERED: ATOR80 PO (12:57)
[2018-07-31] MEDS ORDERED: POTCHL10ER PO (12:58)
[2018-07-31] MEDS ORDERED: METF500 (12:58)
[2018-07-31] MEDS ORDERED: ONDA8 PO (12:58)
[2018-07-31] MEDS ORDERED: PREG300 PO (12:58)
[2018-07-31] MEDS ORDERED: CARV6.25 PO (12:59)
[2018-07-31] MEDS ORDERED: FURO20 PO (12:59)
[2018-07-31] MEDS ORDERED: TAMS.4ER PO (12:59)
[2018-07-31] MEDS ORDERED: PREG300 (13:00)
[2018-07-31] MEDS ORDERED: OXYC5 (13:00)
[2018-07-31] MEDS ORDERED: ELIQUIS2.5 MG PO (13:00)
[2018-07-31] MEDS ORDERED: Aspir 8181 MG PO (13:00)
[2018-07-31] MEDS ORDERED: DEXA4 PO (13:01)
[2018-07-31] MEDS ORDERED: BASAGLAR K100 UNIT/1 SQ (13:01)
[2018-07-31] MEDS ORDERED: FERRO-TIME325 MG PO (13:02)
[2018-07-31] MEDS ORDERED: JARDIANCE25 MG PO (13:13)
[2018-07-31] MEDS ORDERED: LEVO750 PO (14:45)
== END 2018-07-31 18:07 | disposition home or self-care (01) ==
LOC: ER 11:04
PROVIDERS: Physician Assistant
DX: G89.3 Neoplasm related pain (acute) (chronic) (principal); C61 Malignant neoplasm of prostate; D72.819 Decreased white blood cell count, unspecified; E11.9 Type 2 diabetes mellitus without complications; Z79.899 Other long term (current) drug therapy; Z79.02 Long term (current) use of antithrombotics/antiplatelets; Z79.82 Long term (current) use of aspirin; Z79.4 Long term (current) use of insulin
CPT/HCPCS: 36415; 80053; 85025; 96361; 96365; 96375; 96376; 99285-25; J1170; J1447; J1956; J7030

== ENCOUNTER → 2018-08-22 | Outpatient (CLI) | payer OTHER ==
[~2018-08-22] MED LIST changes: +ATOR80 PO; +Aspir 8181 MG PO; +BASAGLAR K100 UNIT/1 SQ; +DEXA4 PO; +FERRO-TIME325 MG PO; +LEVO750 PO; +METF500; +NYSTRITC TOP; +ONDA8 PO; +OXYC5; +PREG300
[2018-08-22 15:30] LABS: Hematocrit 27.3 % (37.0-53.0); Hemoglobin 8.9 g/dL (13.5-17.5); Mean Corpuscular HGB 28.3 pg (26.0-34.0); Mean Corpuscular HGB Conc 32.6 g/dL (31.5-36.5); Mean Corpuscular Volume 87 fL (80-100); Mean Platelet Volume 10.5 fL (9.1-12.4); Platelet Count 173 K/mm3 (150-400); RDW Coefficient Variation 22.2 % (11.7-14.2); RDW Standard Deviation 69.3 fL (35.1-46.3); Red Blood Cell Count 3.14 M/mm3 (4.30-5.90)
[2018-08-22 15:33] LABS: White Blood Cell Count 0.46 K/mm3 (4.00-11.30)
[2018-08-22 15:39] LABS: Alanine Aminotransfer (ALT/SGP 12 U/L (12-78); Albumin, Blood 2.4 g/dL (3.4-5.0); Albumin/Globulin Ratio 0.7 (0.8-1.8); Alk Phos 63 U/L (50-136); Anion Gap 7 mmol/L (6-16); Aspartate Aminotrans (AST/SGOT 11 U/L (12-37); Blood Urea Nitrogen 16 mg/dL (8-24); Bun/Creatinine Ratio 15.5 (12.0-20.0); CO2, Blood 24 mmol/L (21-32); Calcium, Blood 8.2 mg/dL (8.5-10.1); Chloride, Blood 103 mmol/L (98-108); Creatinine, Blood 1.03 mg/dL (0.60-1.20); Globulin, Blood 3.5 g/dL (2.2-4.0); Glomerular Filtration Rate >60 (60-); Glucose, Blood 263 mg/dL (70-99); Potassium, Blood 4.4 mmol/L (3.5-5.5); Sodium, Blood 134 mmol/L (136-145); Total Protein, Blood 5.9 g/dL (6.4-8.2)
[2018-08-22 16:27] LABS: BASOPHILS PERCENT MAN 0 % (0-2); EOSINOPHILS PERCENT MAN 0 % (0-6); LYMPHOCYTES % ATYPICAL MANUAL 3 % (0-0); LYMPHOCYTES ABSOLUTE MAN 0.33 K/mm3 (0.84-5.20); LYMPHOCYTES PERCENT MAN 69 % (21-46); MONOCYTES ABSOLUTE MAN 0.07 K/mm3 (0.16-1.47); MONOCYTES PERCENT MAN 16 % (4-13); NEUTROPHILS ABSOLUTE MAN 0.05 K/mm3 (1.96-9.15); SEG NEUTROPHILS PERCENT MAN 12 % (41-73); TOTAL CELLS COUNTED 100
== END | disposition home or self-care (01) ==
LOC: LAB SHORT 14:26 → LAB 14:26
PROVIDERS: Internal Medicine Hematology & Oncology
DX: C61 Malignant neoplasm of prostate (principal); C79.51 Secondary malignant neoplasm of bone; D70.1 Agranulocytosis secondary to cancer chemotherapy
CPT/HCPCS: 80053; 85025

== ENCOUNTER 2018-09-10 06:09 | Inpatient (IN) | payer OTHER ==
[~2018-09-10] VITALS: Ht 177.8 cm; Wt 97.1 kg
[~2018-09-10 06:09] MED LIST changes: -OXYC5; -PREG300
[2018-09-10 07:59] LABS: Hematocrit 27.8 % (37.0-53.0); Hemoglobin 8.9 g/dL (13.5-17.5); Mean Corpuscular HGB 29.6 pg (26.0-34.0); Mean Corpuscular Volume 92 fL (80-100); Platelet Count 122 K/mm3 (150-400); RDW Coefficient Variation 21.5 % (11.7-14.2); RDW Standard Deviation 73.7 fL (35.1-46.3); Red Blood Cell Count 3.01 M/mm3 (4.30-5.90); White Blood Cell Count 1.22 K/mm3 (4.00-11.30)
[2018-09-10 08:18] LABS: Alanine Aminotransfer (ALT/SGP 12 U/L (12-78); Albumin, Blood 2.5 g/dL (3.4-5.0); Albumin/Globulin Ratio 0.9 (0.8-1.8); Alk Phos 68 U/L (50-136); Anion Gap 6 mmol/L (6-16); Aspartate Aminotrans (AST/SGOT 15 U/L (12-37); Bilirubin, Total 1.5 mg/dL (0.1-1.0); Blood Urea Nitrogen 9 mg/dL (8-24); Bun/Creatinine Ratio 16.3 (12.0-20.0); CO2, Blood 24 mmol/L (21-32); Calcium, Blood 7.8 mg/dL (8.5-10.1); Chloride, Blood 106 mmol/L (98-108); Creatinine, Blood 0.55 mg/dL (0.60-1.20); Globulin, Blood 2.8 g/dL (2.2-4.0); Glomerular Filtration Rate >60 (60-); Glucose, Blood 201 mg/dL (70-99); Potassium, Blood 4.2 mmol/L (3.5-5.5); Sodium, Blood 136 mmol/L (136-145); Total Protein, Blood 5.3 g/dL (6.4-8.2)
[2018-09-10 08:27] LABS: BAND PERCENT MAN 3 % (0-8); BASOPHILS ABSOLUTE MAN 0.02 K/mm3 (0.00-0.23); BASOPHILS PERCENT MAN 2 % (0-2); EOSINOPHILS PERCENT MAN 0 % (0-6); LYMPHOCYTES ABSOLUTE MAN 0.34 K/mm3 (0.84-5.20); LYMPHOCYTES PERCENT MAN 28 % (21-46); MONOCYTES ABSOLUTE MAN 0.07 K/mm3 (0.16-1.47); MONOCYTES PERCENT MAN 6 % (4-13); NEUTROPHILS ABSOLUTE MAN 0.78 K/mm3 (1.96-9.15); SEG NEUTROPHILS PERCENT MAN 61 % (41-73); TOTAL CELLS COUNTED 100
[2018-09-10 09:24] LABS: Source, Urine Clean Catch
[2018-09-10 09:30] LABS: Bilirubin, Urine Neg (Neg); Blood, Urine 4+ (Neg); Glucose Qualitative, Urine 1+ (Neg); Ketones, Urine 1+ (Neg); Leukocyte Esterase, Urine 1+ (Neg); Nitrite, Urine Neg (Neg); Protein, Urine 2+ (Neg); Specific Gravity, Urine 1.015 (1.003-1.022); Urobilinogen, Urine NORM (Normal)
[2018-09-10 09:40] LABS: Appearance, Urine Hazy (Clear); Color, Urine Yellow (P-Yellow)
[2018-09-10 09:42] LABS: Red Blood Cells, Urine 25-50 /hpf (0-2)
[2018-09-10 09:45] LABS: Bacteria Few /hpf; Squamous Epithelial Cells Rare /hpf (Few); Yeast/Fungi Urine Rare /hpf
[2018-09-10 09:52] LABS: Mucus Mod (0-Heavy)
[2018-09-10] MEDS ORDERED: PREG300 PO (10:25)
[2018-09-10] MEDS ORDERED: MORP15ER PO (10:26)
[2018-09-10] MEDS ORDERED: TRULICITY1.5 MG/0.5 SQ (10:28)
[2018-09-10] MEDS ORDERED: OXYC10TA19 (10:28)
[2018-09-10] MEDS ORDERED: FENT50TP TOP (10:32)
[2018-09-10] MEDS ORDERED: OXYC5 PO (17:24)
--- NOTE | 2018-09-10 19:57 | NUR ---
Received the pt from the ED via stretcher. Alert, oriented, very cheerful and cooperative and conversant at length. States that the medication he recieved in the ED reduced his pain to a tolerable level of 5-6/10. He was able to stand and transfer without any observable or verbalized difficulty. States that he does use a cane for walking just for stability when walking distances at home, such as to the mailbox. States that he does not know his home medications very well since there are so many of them. I was able to obtain a fax from [facility] of his recent prescriptions and directions this evening just before 1900. Consultation request was called into the answering service for Dr. Hernandez this evening as well. The pt states that he has not had much of an appetite, but he was very hungry this evening since he hadn't eaten in about 24 hours, he said. Denies any mechanical swallowing difficulty. States that his last chemotherapy treatment was 5 days ago. States that he was diagnosed in April with metastasis of his prostate CA to the bone.
--- NOTE | 2018-09-11 03:11 | NUR ---
09/11/18 0310 PALLIATIVE CARE NOTIFIED VIA VOCERA OF CONSULT.
--- NOTE | 2018-09-11 05:42 | NUR ---
09/11/18 0530 AWAKENED FOR VITALS. NO COMPLAINTS THIS AM. STATES HE IS "SLEEPINF GOOD". VITALS STABLE. INSTRUCTED TO CALL FOR ASSISTENCE TO BATHROOM AND STATES HE WILL CALL. BED ALARM ON.
--- NOTE | 2018-09-11 07:48 | NUR ---
pt sleeping wakes breifly to verbal stimuli wanting to sleep longer
[2018-09-11 10:44] LABS: Hemoglobin 8.2 g/dL (13.5-17.5); Mean Corpuscular HGB 29.3 pg (26.0-34.0); Mean Corpuscular HGB Conc 31.5 g/dL (31.5-36.5); Mean Corpuscular Volume 93 fL (80-100); Mean Platelet Volume 10.9 fL (9.1-12.4); Platelet Count 115 K/mm3 (150-400); RDW Coefficient Variation 21.2 % (11.7-14.2); RDW Standard Deviation 71.2 fL (35.1-46.3)
[2018-09-11 10:46] LABS: BASOPHILS ABSOLUTE AUTO 0.02 K/mm3 (0.00-0.23); BASOPHILS PERCENT AUTO 2 % (0-2); EOSINOPHILS ABSOLUTE AUTO 0.01 K/mm3 (0.00-0.68); EOSINOPHILS PERCENT AUTO 1 % (0-6); IMMATURE GRAN ABSOLUTE AUTO 0.01 K/mm3 (0.00-0.10); IMMATURE GRAN PERCENT AUTO 1 % (0-1); LYMPHOCYTES ABSOLUTE AUTO 0.31 K/mm3 (0.84-5.20); LYMPHOCYTES PERCENT AUTO 33 % (21-46); MONOCYTES ABSOLUTE AUTO 0.21 K/mm3 (0.16-1.47); MONOCYTES PERCENT AUTO 23 % (4-13); NEUTROPHILS ABSOLUTE AUTO 0.37 K/mm3 (1.96-9.15); NEUTROPHILS PERCENT AUTO 40 % (41-73)
[2018-09-11 10:48] LABS: White Blood Cell Count 0.93 K/mm3 (4.00-11.30)
--- NOTE | 2018-09-11 10:53 | NUR ---
DR SINHA CALLED WITH CRITICAL WBC COUNT DEC 0.93 IN NEUTROPENIC PRECAUTIONS ONC TO BE CONSULTED
[2018-09-11 11:00] LABS: Anion Gap 6 mmol/L (6-16); Blood Urea Nitrogen 9 mg/dL (8-24); Bun/Creatinine Ratio 15.9 (12.0-20.0); CO2, Blood 24 mmol/L (21-32); Calcium, Blood 7.6 mg/dL (8.5-10.1); Chloride, Blood 105 mmol/L (98-108); Creatinine, Blood 0.57 mg/dL (0.60-1.20); Glomerular Filtration Rate >60 (60-); Glucose, Blood 235 mg/dL (70-99); Sodium, Blood 135 mmol/L (136-145)
--- NOTE | 2018-09-11 12:20 | NUR ---
pt req pain meds iv dilaudid given dr carlson pt parameter to hold if b/p lower then 90 sbp
--- NOTE | 2018-09-11 12:45 | NUR ---
dr sequeira called update given stated pt had long acting med to increase his wbc count last [address] fitzpatrick see pt wed will update dr carlson pt stated he had his dose mon this week
--- NOTE | 2018-09-11 17:56 | NUR ---
SHIFT SUMMARY PT MORE AWAKE THIS PM. AMBULATING IN ROOM IND. PT USUALLY TAKES MIRALAX AND SENNA AT HOME. REQUESTED ORDER AND MEDICATED PER MAR. HAVING SMALL HARD STOOLS WITH C/O OF STRAINING. AAX4 AT BEDSIDE. REPORTS PAIN LEVEL OF 5/10 IN SHINS BUT DECLINING PAIN MEDS AT THIS TIME.
[2018-09-12 04:19] LABS: Hematocrit 27.3 % (37.0-53.0); Hemoglobin 8.6 g/dL (13.5-17.5); Mean Corpuscular HGB 29.7 pg (26.0-34.0); Mean Corpuscular HGB Conc 31.5 g/dL (31.5-36.5); Mean Corpuscular Volume 94 fL (80-100); Mean Platelet Volume 10.9 fL (9.1-12.4); NRBC ABSOLUTE 0.09 K/mm3 (0.00-0.02); Platelet Count 125 K/mm3 (150-400); RDW Coefficient Variation 21.2 % (11.7-14.2); RDW Standard Deviation 73.2 fL (35.1-46.3); White Blood Cell Count 3.03 K/mm3 (4.00-11.30)
[2018-09-12 04:36] LABS: Anion Gap 8 mmol/L (6-16); Blood Urea Nitrogen 10 mg/dL (8-24); Bun/Creatinine Ratio 18.1 (12.0-20.0); CO2, Blood 23 mmol/L (21-32); Calcium, Blood 7.5 mg/dL (8.5-10.1); Chloride, Blood 105 mmol/L (98-108); Creatinine, Blood 0.55 mg/dL (0.60-1.20); Glomerular Filtration Rate >60 (60-); Glucose, Blood 174 mg/dL (70-99); Potassium, Blood 4.1 mmol/L (3.5-5.5); Sodium, Blood 136 mmol/L (136-145)
[2018-09-12 05:49] LABS: BASOPHILS PERCENT MAN 0 % (0-2); MYELOCYTE ABSOLUTE MAN 0.18 K/mm3 (0.00-0.00)
[2018-09-12 06:05] LABS: BLASTS PERCENT MAN 1 % (0-0)
[2018-09-12 06:06] LABS: BAND PERCENT MAN 8 % (0-8); EOSINOPHILS ABSOLUTE MAN 0.03 K/mm3 (0.00-0.68); EOSINOPHILS PERCENT MAN 1 % (0-6); LYMPHOCYTES PERCENT MAN 20 % (21-46); METAMYELOCYTE ABSOLUTE MAN 0.12 K/mm3 (0.00-0.00); METAMYELOCYTE PERCENT MAN 4 % (0-0); MONOCYTES ABSOLUTE MAN 0.42 K/mm3 (0.16-1.47); MONOCYTES PERCENT MAN 14 % (4-13); MYELOCYTE PERCENT MAN 6 % (0-0); NEUTROPHILS ABSOLUTE MAN 1.63 K/mm3 (1.96-9.15); SEG NEUTROPHILS PERCENT MAN 46 % (41-73); TOTAL CELLS COUNTED 100
--- NOTE | 2018-09-12 06:53 | NUR ---
SHIFT SUMMARY- PT HAS REMAINED AOX4 THROUGHOUT SHIFT. PLEASANT AND COOPERATIVE WITH CARE. PT WITH ONE EPISODE OF SLIGHT HYPOTENSION WITH SBP OF 99 THAT WAS ASYMPTOMATIC, ALL OTHER VSS. PT CONTINUES TO AMBULATE WITH STANDBY ASSIST TO RESTROOM WITHOUT DIFFICULTY. MEDICATED ONCE FOR PAIN THROUGHOUT THE NIGHT THAT DECREASED WITH ORDERED MEDICATIONS. PT ABLE TO REST WELL THROUGHOUT THE NIGHT. NO OTHER CHANGES NOTED FROM INITIAL ASSESSMENT. WILL CONTINUE TO MONITOR AND REPORT TO ONCOMING SHIFT RN. BED IN LOW POSITION, CALL LIGHT IN REACH.
--- NOTE | 2018-09-12 13:16 | NUR ---
REPORT RECEIVED FROM SHAWN MCMAHAN. NO ACUTE ISSUES NOTED/ NO CURRENT COMPLAINTS OF PAIN OR DISCOMFORT NOTED. WILL CONTINUE TO MONITOR FOR CHANGES.
--- NOTE | 2018-09-12 17:37 | NUR ---
NO ACUTE ISSUES NOTED. PATIENT IS DOING WELL, NO CURRENT COMPLAINTS OF PAIN OR DISCOMFORT NOTED. WILL CONTINUE TO MONITOR FOR CHANGES.
--- NOTE | 2018-09-12 21:32 | NUR ---
PROVIDER CONTACTED PT REPORTING SOME ABDOMINAL GAS AND BLOATING- REQUESTING MEDICATION FOR NAUSEA. DR STARKS CONTACTED AND ORDERS RECEIVED FOR ZOFRAN 4-8 MG Q6 PRN. WILL INPUT ORDERS AND ADMINISTER.
[2018-09-13 04:41] LABS: Hematocrit 25.6 % (37.0-53.0); Hemoglobin 8.2 g/dL (13.5-17.5); Mean Corpuscular HGB 29.5 pg (26.0-34.0); Mean Corpuscular Volume 92 fL (80-100); Mean Platelet Volume 11.2 fL (9.1-12.4); NRBC Auto 2.2 /100 WBC (0.0-0.2); Platelet Count 165 K/mm3 (150-400); RDW Coefficient Variation 21.4 % (11.7-14.2); RDW Standard Deviation 71.2 fL (35.1-46.3); Red Blood Cell Count 2.78 M/mm3 (4.30-5.90)
[2018-09-13 05:11] LABS: Alanine Aminotransfer (ALT/SGP 10 U/L (12-78); Albumin, Blood 2.3 g/dL (3.4-5.0); Albumin/Globulin Ratio 0.8 (0.8-1.8); Alk Phos 68 U/L (50-136); Anion Gap 8 mmol/L (6-16); Aspartate Aminotrans (AST/SGOT 10 U/L (12-37); Bilirubin, Total 0.7 mg/dL (0.1-1.0); Blood Urea Nitrogen 10 mg/dL (8-24); Bun/Creatinine Ratio 17.1 (12.0-20.0); CO2, Blood 23 mmol/L (21-32); Calcium, Blood 7.4 mg/dL (8.5-10.1); Chloride, Blood 105 mmol/L (98-108); Creatinine, Blood 0.59 mg/dL (0.60-1.20); Globulin, Blood 2.8 g/dL (2.2-4.0); Glomerular Filtration Rate >60 (60-); Glucose, Blood 178 mg/dL (70-99); Magnesium, Blood 1.5 mg/dL (1.6-2.4); Phosphorus, Blood 1.7 mg/dL (2.5-4.9); Potassium, Blood 3.8 mmol/L (3.5-5.5); Sodium, Blood 136 mmol/L (136-145); Total Protein, Blood 5.1 g/dL (6.4-8.2)
[2018-09-13 05:30] LABS: BAND PERCENT MAN 11 % (0-8); BASOPHILS PERCENT MAN 0 % (0-2); BLASTS PERCENT MAN 1 % (0-0); EOSINOPHILS PERCENT MAN 0 % (0-6); LYMPHOCYTES ABSOLUTE MAN 0.82 K/mm3 (0.84-5.20); LYMPHOCYTES PERCENT MAN 6 % (21-46); METAMYELOCYTE ABSOLUTE MAN 0.27 K/mm3 (0.00-0.00); METAMYELOCYTE PERCENT MAN 2 % (0-0); MONOCYTES ABSOLUTE MAN 0.69 K/mm3 (0.16-1.47); MONOCYTES PERCENT MAN 5 % (4-13); MYELOCYTE ABSOLUTE MAN 0.41 K/mm3 (0.00-0.00); MYELOCYTE PERCENT MAN 3 % (0-0); NEUTROPHILS ABSOLUTE MAN 11.31 K/mm3 (1.96-9.15); PROMYELOCYTE ABSOLUTE MAN 0.13 K/mm3 (0.00-0.00); PROMYELOCYTE PERCENT MAN 1 % (0-0); SEG NEUTROPHILS PERCENT MAN 71 % (41-73); TOTAL CELLS COUNTED 100
--- NOTE | 2018-09-13 05:49 | NUR ---
SHIFT SUMMARY PT HAS REMAINED AOX4 THROUGHOUT SHIFT. VSS. PLEASANT AND COOPERATIVE WITH CARE. PT CONTINUES TO AMBULATE INDEPENDENTLY TO THE RESTROOM WITHOUT DIFFICULTY. PT WITH ONE EPISODE OF ABDOMINAL DISCOMFORT AND "GAS" LAST NIGHT THAT DECREASED WITH ZOFRAN. MEDICATED ONCE FOR PAIN THAT DECREASED WITH ORDERED MEDICATIONS. PT EDUCATED ON PAIN MANAGEMENT AND UTILIZATION OF ORAL MEDICATIONS TO ENSURE PAIN MANAGEMENT IS ADEQUATE PRIOR TO DISHCARGE. PT REMAINS INDEPENDENT IN ROOM. NO OTHER CHANGES NOTED FROM INITIAL ASSESSMENT. WILL CONTINUE TO MONITOR AND REPORT TO ONCOMING SHIFT RN. BED IN LOW POSITION, CALL LIGHT IN REACH.
--- NOTE | 2018-09-13 08:05 | NUR ---
AM ASSESSMENT: Pt resting in bed. LS clear. HR irregular with murmur heard. BT hyperactive. Pt states that he is feeling a little bloated and that he may need to go use the restroom soon. IVF running per orders. Pulses palp. Pt C/O Pain 6/10 in joints. Will treat per orders. Pt oriented x 4. VSS. Denies needs. Call light in reach. Will continue to monitor.
--- NOTE | 2018-09-13 10:39 | NUR ---
update: Pt to be transfered to room 339. Report was given to medical floor RN. Pt will be transfered via W/C. Pt did have loose BM earlier and states that his pain has improved since pain medication this am.
--- NOTE | 2018-09-13 15:25 | NUR ---
Initial Visit: Palliative Care Consult for Symptom Management. Pt is A&O and reports 6/10 pain. He reports recently receiving pain medication and pain is starting to decrease. He reports current regimen is managing his pain. He also reports his nausea is managed with current regimen. Pt's Rashida is present during visit. Engaged in therapeutic discussion regarding goals of care. Pt lives at home with his and states believing in God but is not part of any particular denomination. Pt reports adquate support between his and neighbors. Pt reports he is independent of his ADLs. He reports his oncologist is optimistic with the treatments and plan is to take a break from chemo therapy for a little while. Educated Pt on managing his pain and the improtance of staying on top of his pain. Suggested to write down time and dose when administering pain medication to keep track of pain management. Educated Pt on the importance of keeping Dr Hernandez informed of pain. V/U made by Pt. Educated Pt and on the importance of having routine conversations with Dr Hernandez regarding cancer in order to plan accordingly. Pt reports no other concerns at this time. Spoke with Pt's bedside nurse Diana and she reports Pt is being discharged today and has no concerns. Palliative Care will remain available.
--- NOTE | 2018-09-13 16:13 | NUR ---
DISCHARGE PT DISCHARGED TO HOME. THIS RN EXPLAINED DISCHARGE INSTRUCTIONS AND MEDICATIONS TO PT AND HE REPORTS HE UNDERSTANDS. IV REMOVED WITHOUT DIFFICULTY. PT TRANSFERRED TO PRIVATE VEHICLE VIA WHEELCHAIR. PT'S BELONGINGS WITH PT AND PT'S SPOUSE.
--- NOTE | 2018-09-13 16:40 | NUR ---
PT ADMITTED TO MED FLOOR DUE TO PAIN/NEUTROPENIA. PAINKILLERS (OXYCODONE) AND ZOFRAN WERE GIVEN FOR BONE PAIN AND NAUSEA. PT WAS COMPLIANT WITH MEDICATION ADMINISTRATION AND DIRECTIONS. PT WAS DISCHARGED ABOUT 1600PM.
== END 2018-09-13 16:20 | disposition home or self-care (01) | DRG 872 ==
LOC: ER 06:09 → PCU 06:10 → MEDS 09-13 11:33 → EDPENDDIS 09-13 12:44 → ENPENDDIS 09-13 12:44 → MEDS 09-13 16:20
PROVIDERS: Emergency Medicine; ADMIT Family Medicine
DX: A41.9 Sepsis, unspecified organism (principal); C79.51 Secondary malignant neoplasm of bone; G89.3 Neoplasm related pain (acute) (chronic); C61 Malignant neoplasm of prostate; E11.65 Type 2 diabetes mellitus with hyperglycemia; Z79.4 Long term (current) use of insulin; D70.2 Other drug-induced agranulocytosis; I25.2 Old myocardial infarction; I10 Essential (primary) hypertension; I48.91 Unspecified atrial fibrillation; Z85.47 Personal history of malignant neoplasm of testis; Z95.5 Presence of coronary angioplasty implant and graft; Z87.891 Personal history of nicotine dependence
CPT/HCPCS: 36415; 71046; 71260; 74177; 80048; 80053; 81001; 82272; 82947; 83605; 83735; 84100; 85025; 87040; 87077; 87086; 87186; 96361; 96365; 96375; 96376; 99285-25; J0696; J1170; J1956; J2405; J3475; J7030; J7120; Q9967

== ENCOUNTER → 2018-09-23 | Outpatient (CLI) | payer OTHER ==
[~2018-09-23] MED LIST changes: +FENT50TP TOP; +MORP15ER PO; +OXYC10TA19; +OXYC5 PO; +TRULICITY1.5 MG/0.5 SQ
[2018-09-23 12:57] LABS: BASOPHILS ABSOLUTE AUTO 0.04 K/mm3 (0.00-0.23); BASOPHILS PERCENT AUTO 1 % (0-2); EOSINOPHILS PERCENT AUTO 0 % (0-6); Hematocrit 34.1 % (37.0-53.0); Hemoglobin 10.9 g/dL (13.5-17.5); IMMATURE GRAN ABSOLUTE AUTO 0.01 K/mm3 (0.00-0.10); IMMATURE GRAN PERCENT AUTO 0 % (0-1); LYMPHOCYTES PERCENT AUTO 12 % (21-46); MONOCYTES ABSOLUTE AUTO 0.73 K/mm3 (0.16-1.47); MONOCYTES PERCENT AUTO 15 % (4-13); Mean Corpuscular HGB 30.3 pg (26.0-34.0); Mean Platelet Volume 9.8 fL (9.1-12.4); NEUTROPHILS PERCENT AUTO 72 % (41-73); Platelet Count 260 K/mm3 (150-400); RDW Coefficient Variation 20.1 % (11.7-14.2); RDW Standard Deviation 70.2 fL (35.1-46.3); White Blood Cell Count 4.88 K/mm3 (4.00-11.30)
[2018-09-23 12:58] LABS: Mean Corpuscular Volume 95 fL (80-100)
[2018-09-23 13:12] LABS: Alanine Aminotransfer (ALT/SGP 13 U/L (12-78); Albumin, Blood 2.6 g/dL (3.4-5.0); Albumin/Globulin Ratio 0.9 (0.8-1.8); Alk Phos 67 U/L (50-136); Anion Gap 8 mmol/L (6-16); Aspartate Aminotrans (AST/SGOT 17 U/L (12-37); Bilirubin, Total 0.9 mg/dL (0.1-1.0); Blood Urea Nitrogen 11 mg/dL (8-24); Bun/Creatinine Ratio 16.9 (12.0-20.0); CO2, Blood 23 mmol/L (21-32); Chloride, Blood 105 mmol/L (98-108); Creatinine, Blood 0.65 mg/dL (0.60-1.20); Glomerular Filtration Rate >60 (60-); Glucose, Blood 210 mg/dL (70-99); Potassium, Blood 4.4 mmol/L (3.5-5.5); Sodium, Blood 136 mmol/L (136-145); Total Protein, Blood 5.6 g/dL (6.4-8.2)
== END | disposition home or self-care (01) ==
LOC: LAB 12:48 → LAB SHORT 12:48
PROVIDERS: Internal Medicine Hematology & Oncology
DX: C61 Malignant neoplasm of prostate (principal)
CPT/HCPCS: 80053; 85025

== ENCOUNTER 2018-10-11 02:28 | Emergency (ER) | payer OTHER ==
[~2018-10-11] VITALS: Ht 182.9 cm; Wt 88.5 kg
[~2018-10-11 02:28] MED LIST changes: +CARV25 PO; -FENT50TP TOP; +Fentanyl1 EAC2 TOP; +ONDA4ODT MM; -ONDA8 PO
[2018-10-11 03:45] LABS: BASOPHILS ABSOLUTE AUTO 0.04 K/mm3 (0.00-0.23); BASOPHILS PERCENT AUTO 1 % (0-2); EOSINOPHILS ABSOLUTE AUTO 0.14 K/mm3 (0.00-0.68); EOSINOPHILS PERCENT AUTO 3 % (0-6); Hematocrit 36.3 % (37.0-53.0); Hemoglobin 11.5 g/dL (13.5-17.5); IMMATURE GRAN ABSOLUTE AUTO 0.01 K/mm3 (0.00-0.10); IMMATURE GRAN PERCENT AUTO 0 % (0-1); LYMPHOCYTES ABSOLUTE AUTO 0.94 K/mm3 (0.84-5.20); LYMPHOCYTES PERCENT AUTO 20 % (21-46); MONOCYTES ABSOLUTE AUTO 0.66 K/mm3 (0.16-1.47); MONOCYTES PERCENT AUTO 14 % (4-13); Mean Corpuscular HGB 31.1 pg (26.0-34.0); Mean Corpuscular HGB Conc 31.7 g/dL (31.5-36.5); Mean Corpuscular Volume 98 fL (80-100); Mean Platelet Volume 9.8 fL (9.1-12.4); NEUTROPHILS ABSOLUTE AUTO 3.02 K/mm3 (1.96-9.15); NEUTROPHILS PERCENT AUTO 63 % (41-73); Platelet Count 168 K/mm3 (150-400); RDW Coefficient Variation 16.8 % (11.7-14.2); RDW Standard Deviation 60.6 fL (35.1-46.3); White Blood Cell Count 4.81 K/mm3 (4.00-11.30)
[2018-10-11 04:01] LABS: Alanine Aminotransfer (ALT/SGP 9 U/L (12-78); Albumin, Blood 2.9 g/dL (3.4-5.0); Alk Phos 62 U/L (50-136); Anion Gap 4 mmol/L (6-16); Aspartate Aminotrans (AST/SGOT 14 U/L (12-37); Bilirubin, Total 0.8 mg/dL (0.1-1.0); Blood Urea Nitrogen 11 mg/dL (8-24); Bun/Creatinine Ratio 15.3 (12.0-20.0); CO2, Blood 27 mmol/L (21-32); Calcium, Blood 8.4 mg/dL (8.5-10.1); Chloride, Blood 108 mmol/L (98-108); Creatinine, Blood 0.72 mg/dL (0.60-1.20); Glomerular Filtration Rate >60 (60-); Glucose, Blood 143 mg/dL (70-99); Potassium, Blood 4.4 mmol/L (3.5-5.5); Sodium, Blood 139 mmol/L (136-145); Total Protein, Blood 5.9 g/dL (6.4-8.2)
== END 2018-10-11 06:00 | disposition home or self-care (01) ==
LOC: ER 02:28
PROVIDERS: Emergency Medicine
DX: I11.0 Hypertensive heart disease with heart failure (principal); I50.20 Unspecified systolic (congestive) heart failure; E11.9 Type 2 diabetes mellitus without complications; I48.91 Unspecified atrial fibrillation; Z79.82 Long term (current) use of aspirin; Z79.4 Long term (current) use of insulin; Z79.899 Other long term (current) drug therapy; Z85.46 Personal history of malignant neoplasm of prostate; Z85.830 Personal history of malignant neoplasm of bone
CPT/HCPCS: 71046; 80053; 83880; 85025; 96374; 96375; 99284-25; J1170; J1940

== ENCOUNTER 2018-10-20 22:22 | Observation (INO) | payer OTHER ==
[~2018-10-20] VITALS: Ht 182.9 cm; Wt 92.5 kg
[2018-10-20 22:47] LABS: BASOPHILS ABSOLUTE AUTO 0.02 K/mm3 (0.00-0.23); BASOPHILS PERCENT AUTO 1 % (0-2); EOSINOPHILS ABSOLUTE AUTO 0.14 K/mm3 (0.00-0.68); EOSINOPHILS PERCENT AUTO 5 % (0-6); Hematocrit 37.7 % (37.0-53.0); IMMATURE GRAN PERCENT AUTO 0 % (0-1); LYMPHOCYTES ABSOLUTE AUTO 0.74 K/mm3 (0.84-5.20); LYMPHOCYTES PERCENT AUTO 24 % (21-46); MONOCYTES ABSOLUTE AUTO 0.39 K/mm3 (0.16-1.47); MONOCYTES PERCENT AUTO 13 % (4-13); Mean Corpuscular HGB 30.7 pg (26.0-34.0); Mean Corpuscular HGB Conc 31.8 g/dL (31.5-36.5); Mean Platelet Volume 9.1 fL (9.1-12.4); NEUTROPHILS ABSOLUTE AUTO 1.83 K/mm3 (1.96-9.15); NEUTROPHILS PERCENT AUTO 59 % (41-73); Platelet Count 145 K/mm3 (150-400); RDW Coefficient Variation 15.6 % (11.7-14.2); RDW Standard Deviation 55.4 fL (35.1-46.3); Red Blood Cell Count 3.91 M/mm3 (4.30-5.90); White Blood Cell Count 3.12 K/mm3 (4.00-11.30)
[2018-10-20 22:48] LABS: Mean Corpuscular Volume 96 fL (80-100)
[2018-10-20 23:06] LABS: Alanine Aminotransfer (ALT/SGP 13 U/L (12-78); Alk Phos 63 U/L (50-136); Anion Gap 5 mmol/L (6-16); Aspartate Aminotrans (AST/SGOT 13 U/L (12-37); Bilirubin, Total 0.6 mg/dL (0.1-1.0); Blood Urea Nitrogen 11 mg/dL (8-24); Bun/Creatinine Ratio 19.1 (12.0-20.0); CO2, Blood 25 mmol/L (21-32); Calcium, Blood 7.9 mg/dL (8.5-10.1); Chloride, Blood 109 mmol/L (98-108); Creatinine, Blood 0.58 mg/dL (0.60-1.20); Globulin, Blood 3.1 g/dL (2.2-4.0); Glomerular Filtration Rate >60 (60-); Glucose, Blood 164 mg/dL (70-99); Potassium, Blood 3.9 mmol/L (3.5-5.5); Sodium, Blood 139 mmol/L (136-145); Total Protein, Blood 6.1 g/dL (6.4-8.2)
[2018-10-20 23:19] LABS: Source, Urine Clean Catch
[2018-10-20 23:34] LABS: Appearance, Urine Hazy (Clear); Bilirubin, Urine Neg (Neg); Blood, Urine 5+ (Neg); Color, Urine Yellow (P-Yellow); Glucose Qualitative, Urine Neg (Neg); Ketones, Urine Neg (Neg); Leukocyte Esterase, Urine 1+ (Neg); Nitrite, Urine Neg (Neg); Protein, Urine 2+ (Neg); Urobilinogen, Urine NORM (Normal)
[2018-10-20 23:35] LABS: Bacteria Few /hpf; Red Blood Cells, Urine TNTC /hpf (0-2); Squamous Epithelial Cells Rare /hpf (Few)
[2018-10-21 04:42] LABS: Hemoglobin 11.1 g/dL (13.5-17.5); Mean Corpuscular HGB 30.9 pg (26.0-34.0); Mean Corpuscular HGB Conc 31.7 g/dL (31.5-36.5); Mean Corpuscular Volume 98 fL (80-100); Mean Platelet Volume 9.4 fL (9.1-12.4); Platelet Count 131 K/mm3 (150-400); RDW Coefficient Variation 15.5 % (11.7-14.2); RDW Standard Deviation 55.8 fL (35.1-46.3); Red Blood Cell Count 3.59 M/mm3 (4.30-5.90); White Blood Cell Count 3.07 K/mm3 (4.00-11.30)
--- NOTE | 2018-10-21 04:49 | NUR ---
SHIFT SUMMARY PT ADMITTED FOR CANCER ASSOCIATED PAIN. PT HAVING SOME WEAKNESS UPON ARRIVAL TO UNIT. MEDICATED FOR PAIN AND NAUSEA IN ED, DENIES PAIN AT PRESENT TIME. PT ALERT AND ORIENTED, USES URINAL AT BEDSIDE. IV LEVAQUIN INFUSING AT PRESENT TIME. WILL CONTINUE TO MONITOR.
[2018-10-21 05:06] LABS: Alanine Aminotransfer (ALT/SGP 14 U/L (12-78); Albumin, Blood 2.7 g/dL (3.4-5.0); Alk Phos 54 U/L (50-136); Anion Gap 4 mmol/L (6-16); Aspartate Aminotrans (AST/SGOT 13 U/L (12-37); Bilirubin, Total 0.8 mg/dL (0.1-1.0); Blood Urea Nitrogen 9 mg/dL (8-24); Bun/Creatinine Ratio 14.8 (12.0-20.0); CO2, Blood 26 mmol/L (21-32); Calcium, Blood 7.7 mg/dL (8.5-10.1); Chloride, Blood 111 mmol/L (98-108); Creatinine, Blood 0.61 mg/dL (0.60-1.20); Globulin, Blood 2.7 g/dL (2.2-4.0); Glomerular Filtration Rate >60 (60-); Glucose, Blood 150 mg/dL (70-99); Potassium, Blood 3.6 mmol/L (3.5-5.5); Sodium, Blood 141 mmol/L (136-145); Total Protein, Blood 5.4 g/dL (6.4-8.2)
--- NOTE | 2018-10-21 07:20 | NUR ---
PT PLEASANT COOP A.O. STATES SOME PAIN KNEES DOWN. 09/02. MED PER EMAR. H/R IRREGULAR. HX AFIB. NO MURMER NOTED. PER TELE: AFIB AT 85. PACER NOTED. LUNGS CLEAR UPPER, LIGHT CRACKLES LOWER. ON 2L O2. RESP EASY, UNLABORED. BT X4 LAST BM YEST. VOIDS PER BATHROOM SBA OR URINAL. BED IN LOW POSITION CALL LITE IN REACH, CALLS APPROP
--- NOTE | 2018-10-21 10:40 | NUR ---
DR GUNTER. STATES HE WANTS CONSULT TO DR KENDRICK, R/T CANCER. HE ALREADY CONTACTED BY TEXT. STATES HE IS CHANGING ORDERS FOR PAIN MEDS. GEORGIE D/C BERENICE, NO CBG'S, PT STATES NOT TAKING.
[2018-10-21 11:07] LABS: BASOPHILS ABSOLUTE AUTO 0.02 K/mm3 (0.00-0.23); BASOPHILS PERCENT AUTO 1 % (0-2); EOSINOPHILS ABSOLUTE AUTO 0.04 K/mm3 (0.00-0.68); EOSINOPHILS PERCENT AUTO 1 % (0-6); Hematocrit 36.1 % (37.0-53.0); Hemoglobin 11.7 g/dL (13.5-17.5); IMMATURE GRAN ABSOLUTE AUTO 0.01 K/mm3 (0.00-0.10); IMMATURE GRAN PERCENT AUTO 0 % (0-1); LYMPHOCYTES ABSOLUTE AUTO 0.38 K/mm3 (0.84-5.20); LYMPHOCYTES PERCENT AUTO 9 % (21-46); MONOCYTES ABSOLUTE AUTO 0.13 K/mm3 (0.16-1.47); MONOCYTES PERCENT AUTO 3 % (4-13); Mean Corpuscular HGB 31.5 pg (26.0-34.0); Mean Corpuscular HGB Conc 32.4 g/dL (31.5-36.5); Mean Corpuscular Volume 97 fL (80-100); Mean Platelet Volume 8.6 fL (9.1-12.4); NEUTROPHILS ABSOLUTE AUTO 3.45 K/mm3 (1.96-9.15); NEUTROPHILS PERCENT AUTO 86 % (41-73); Platelet Count 122 K/mm3 (150-400); RDW Coefficient Variation 15.5 % (11.7-14.2); RDW Standard Deviation 55.1 fL (35.1-46.3); Red Blood Cell Count 3.72 M/mm3 (4.30-5.90); White Blood Cell Count 4.03 K/mm3 (4.00-11.30)
[2018-10-21 11:30] LABS: Uric Acid, Blood 3.3 mg/dL (3.5-7.2)
--- NOTE | 2018-10-21 12:57 | NUR ---
UPDATING FENTANYL PATCH TIMES. ADMINS AT HOME. DUE TODAY NOW . UPDATE PER DR GUNTER
--- NOTE | 2018-10-21 14:07 | NUR ---
Echocardiogram completed.
--- NOTE | 2018-10-21 19:16 | NUR ---
PT QUITE PLEASANT COOP TODAY. PAIN MANAGED WITH AVAIL MEDS. FAMILY ALL PLEASANT TODAY. DR KENDRICK WAS CONSULTED AND HAS SEEN PT. ECHO ORDERED. NO OTHER CONCERNS AT THIS TIME. BED IN LOW POSITION, CALL LITE IN REACH, CALLS APPROP
--- NOTE | 2018-10-22 04:09 | NUR ---
SHIFT SUMMARY: 63 Y/O MALE HAD RESTLESS NIGHT AT BEGINNING WITH INABILITY TO URINATE. PT WAS UP MULTIPLE TIMES ATTEMPTING TO VOID WITHOUT SUCCESS. PT HAS VERY POOR BALANCE AND REQUIRED STANDBY ASSIST WITH EACH TRIP INTO BATHROOM AND BACK. PTS WAS BLADDER SCANNED AT 0130 WITH 927ML NOTED. PT WAS STRAIGHT CATHED X1 VIA STERILE TECHNIQUE, 14 CHINESE CATHETER WITH 900 ML CLEAR YELLOW FLUID NOTED. PT TOLERATED PROCEDURE WELL. PT DENIES NAUSEA. PTS CONTINUES TO MUMBLE SPEECH THAT IS NOT UNDERSTANDABLE TO NURSING STAFF; HOWEVER; PT IS ABLE TO FOLLOW SIMPLE VERBAL COMMANDS. PTS BED ALARM APPLIED ALL SHIFT, BED LOW POSITION, CALL LIGHT AT SIDE.
--- NOTE | 2018-10-22 04:36 | NUR ---
SHIFT SUMMARY: 67 Y/O MALE RESTED COMFORTABLY ALL SHIFT WITH NO C/O PAIN OR NAUSEA. PT TELEMETRY REFLECTS A/FIB WITH HEART RATE 84. PT WEARING O2 AT 2L/M PER NASAL CANNULA WITH O2 SATS AVERAGING 93%. PT HAPPY AND COOPERATIVE. PT MAINTAINED ON NEUTROPENIC ISOLATION. PTS BED LOW POSITION, CALL LIGHT AT SIDE.
[2018-10-22] MEDS ORDERED: LEVFLO500 PO (11:28)
--- NOTE | 2018-10-22 13:15 | NUR ---
pt has advance directive and plan of care to DC today.
--- NOTE | 2018-10-22 13:20 | NUR ---
PT DISCHARGED AT 1315 WITH FAMILY TO TRANSPORT. PT HAD ALL PAPERWORK REVIEWED AND EDUCATIONAL MATERIAL SENT. MEDICATIONS FAXED TO [facility] IN [place]. NO DISTRESS NOTED AND PT WAS TRANSFERING WELL A STANDBY ASSIST.
== END 2018-10-22 13:16 | disposition home or self-care (01) ==
LOC: ER 22:22 → MEDS 22:23 → ENPENDDIS 10-22 10:25 → MEDS 10-22 13:16
PROVIDERS: Emergency Medicine; Internal Medicine; Internal Medicine Hematology & Oncology; ADMIT Internal Medicine
DX: C61 Malignant neoplasm of prostate (principal); C79.51 Secondary malignant neoplasm of bone; I11.0 Hypertensive heart disease with heart failure; I50.20 Unspecified systolic (congestive) heart failure; I50.30 Unspecified diastolic (congestive) heart failure; J18.1 Lobar pneumonia, unspecified organism; D61.818 Other pancytopenia; I25.10 Atherosclerotic heart disease of native coronary artery without angina pectoris; I25.2 Old myocardial infarction; I48.91 Unspecified atrial fibrillation; E11.9 Type 2 diabetes mellitus without complications; Z87.891 Personal history of nicotine dependence
CPT/HCPCS: 36415; 71046; 73630; 80053; 81001; 83605; 83735; 83880; 84145; 84153; 84484; 84550; 85025; 85027; 87040; 87086; 93005; 93010; 93308; 93321; 94760; 96374; 96375; 96376; 97110; 97161; 99285-25; G0378; J1170; J1956; J2550; J2930; J7030; J7050

== ENCOUNTER 2018-12-12 05:53 | Emergency (ER) | payer OTHER ==
[~2018-12-12] VITALS: Ht 182.9 cm; Wt 81.7 kg
--- NOTE | 2018-12-12 10:10 | NUR ---
Initial Visit: ED Palliative Care Consult for Pain Management. Spoke with Dr Gaston and discussed case. Dr Gaston reports Pt would benefit from pain management at home. Pt is A&O and reports 8/10 pain in his feet. He also reports pain in his back and hiprs. He states the worse of the pain is in his feet. Pt reports taking 5mg to 10mg of oxycodone an average of 3 times a day which manages most of the painful areas except his feet. Pt's Diane is present during visit. Pt lives at home with his and have no children. Pt and report adequate support with their neighbors for needs of care. Pt is still independent of his ADLs and sees Dr Hernandez for his metastatic cancer. Reviewed home medications and discussed options. Pt reports the pain in his feet are tingling and feels a lot of pressure. Pt reports currently on Lyrica and is not beneficial. Discussed Gabapentin and Pt expresses interest. Called and spoke with Pt's PCP Luis Dee and discussed Pt's pain. PCP reports he will fax prescription to Pt's pharmacy for Gabapentin 300mg TID. PCP instructs to have Pt stop Lyrica. Educated Pt on possible side effects of Gabapentin and instructed Pt to stop Lyrica with V/U made by Pt. Instructed Pt to routinely report pain management to PCP and Dr Hernandez. Left contact information for palliative care with Pt and instructed to call with any questions or concerns. Spoke with Dr Gaston and he is agreeable with plan. Reported Pt's pain. Dr Gaston reports he will medicate Pt with pain medication and discharge home. Palliative Care will remain available.
== END 2018-12-12 10:25 | disposition home or self-care (01) ==
LOC: ER 05:53
DX: G89.3 Neoplasm related pain (acute) (chronic) (principal); M25.552 Pain in left hip; M79.671 Pain in right foot; C61 Malignant neoplasm of prostate; C79.51 Secondary malignant neoplasm of bone; E11.40 Type 2 diabetes mellitus with diabetic neuropathy, unspecified; I10 Essential (primary) hypertension; I48.91 Unspecified atrial fibrillation; I25.2 Old myocardial infarction; Z79.4 Long term (current) use of insulin; Z79.899 Other long term (current) drug therapy
CPT/HCPCS: 36415; 96374; 96375; 96376; 99283-25; J1170; J2270; J2405

== ENCOUNTER 2018-12-31 11:20 | Emergency (ER) | payer OTHER ==
[~2018-12-31] VITALS: Ht 182.9 cm; Wt 78.5 kg
[2018-12-31] MEDS ORDERED: Fentanyl1 EACH TOP (11:42)
--- NOTE | 2018-12-31 14:38 | NUR ---
Called to meet with patient he expressed to staff interest in hospice. Patients was present. Review of symptoms with patient. He states he has been having mild headaches. He has had ringingin in his ears for many years from hearing damage. He has some discomfort to his teeth and they are in decline has some sensitivity an tooth aches. Pt states swallowing has been very difficult especially thin liquids he feels it gets stuck in his chest and has trouble coughing up liquids. He has some mild nause most of the time and very very poor appetite. he has worsening constipation. He has ddp aching pain in his bones and his legs burn and hurt all the time. He is struggling to walk. He denies falls but states his balance has beem very poor. He is cold all the time. pt angry states he retired not to long ago and is feeling he does not want to go on. He also states that Dr Hernandez has a plan for him. We reviewed stategies of hydration and tolerance of food, We reviewed his bowel meds and reviewed with his increaseing fluids. We reviewed how constipation can effect appetite and nausea. Patient and his have experinced hospice before with family. Reivew of holistic care and choices of hopice if he wants it or continuing care. Focused on him discussing care with his oncologist. Pt feels he near the end of his life. Did not focus on hospice. Focused on pt feeling supported and having more control he is grieving the loss of being productive and having more control of his life. offered supportive follow up contact information. Review with physician pain needs and constipation. pt high risk for falls. pt stated he wanted to try some pudding and something to drink provided hism with some pudding so we could see how he does.
== END 2018-12-31 15:06 | disposition home or self-care (01) ==
LOC: ER 11:20
DX: C61 Malignant neoplasm of prostate (principal); C79.51 Secondary malignant neoplasm of bone; E11.9 Type 2 diabetes mellitus without complications; Z79.4 Long term (current) use of insulin; Z79.899 Other long term (current) drug therapy
CPT/HCPCS: 36415; 96374; 96375; 96376; 99283-25; J1100; J1170; J2405

== ENCOUNTER 2019-01-24 06:25 | Emergency (ER) | payer OTHER ==
[~2019-01-24] VITALS: Ht 182.9 cm; Wt 74.8 kg
[~2019-01-24 06:25] MED LIST changes: +Fentanyl1 EACH TOP
== END 2019-01-24 08:49 | disposition home or self-care (01) ==
LOC: ER 06:25
DX: G89.3 Neoplasm related pain (acute) (chronic) (principal); C79.51 Secondary malignant neoplasm of bone; M54.5 Low back pain; C61 Malignant neoplasm of prostate; E11.9 Type 2 diabetes mellitus without complications; Z88.1 Allergy status to other antibiotic agents; Z79.899 Other long term (current) drug therapy; Z79.01 Long term (current) use of anticoagulants; Z79.4 Long term (current) use of insulin; Z79.891 Long term (current) use of opiate analgesic
CPT/HCPCS: 36415; 82947; 96374; 96375; 99283-25; J1170

== ENCOUNTER 2019-02-12 13:07 | Emergency (ER) | payer OTHER ==
[~2019-02-12] VITALS: Ht 177.8 cm; Wt 81.7 kg
[2019-02-12] MEDS ORDERED: MECL12.5 PO (14:45)
[2019-02-12] MEDS ORDERED: Fentanyl1 EAC4 TOP (14:47)
[2019-02-12] MEDS ORDERED: ACYC800 PO (14:49)
[2019-02-12] MEDS ORDERED: GABA300 PO (14:52)
== END 2019-02-12 15:54 | disposition home or self-care (01) ==
LOC: ER 13:07
DX: G89.3 Neoplasm related pain (acute) (chronic) (principal); C61 Malignant neoplasm of prostate; M89.8X9 Other specified disorders of bone, unspecified site; C79.51 Secondary malignant neoplasm of bone; I10 Essential (primary) hypertension; Z79.899 Other long term (current) drug therapy; Z79.01 Long term (current) use of anticoagulants; Z79.4 Long term (current) use of insulin
CPT/HCPCS: 96374; 96375; 99283-25; J1170; J2405

== ENCOUNTER → 2019-02-27 | Outpatient (CLI) | payer OTHER ==
[~2019-02-27] MED LIST changes: +Fentanyl1 EAC4 TOP; +GABA300 PO; +MECL12.5 PO; +MS Contin15 MG PO
[2019-02-27 15:54] LABS: BASOPHILS ABSOLUTE AUTO 0.06 K/mm3 (0.00-0.23); BASOPHILS PERCENT AUTO 1 % (0-2); EOSINOPHILS PERCENT AUTO 0 % (0-6); Hematocrit 33.9 % (37.0-53.0); Hemoglobin 10.8 g/dL (13.5-17.5); IMMATURE GRAN ABSOLUTE AUTO 0.01 K/mm3 (0.00-0.10); IMMATURE GRAN PERCENT AUTO 0 % (0-1); LYMPHOCYTES ABSOLUTE AUTO 1.14 K/mm3 (0.84-5.20); LYMPHOCYTES PERCENT AUTO 24 % (21-46); MONOCYTES ABSOLUTE AUTO 0.86 K/mm3 (0.16-1.47); MONOCYTES PERCENT AUTO 18 % (4-13); Mean Corpuscular HGB 30.8 pg (26.0-34.0); Mean Corpuscular HGB Conc 31.9 g/dL (31.5-36.5); Mean Corpuscular Volume 97 fL (80-100); Mean Platelet Volume 8.6 fL (9.1-12.4); NEUTROPHILS ABSOLUTE AUTO 2.68 K/mm3 (1.96-9.15); NEUTROPHILS PERCENT AUTO 56 % (41-73); Platelet Count 278 K/mm3 (150-400); RDW Coefficient Variation 16.9 % (11.7-14.2); RDW Standard Deviation 58.9 fL (35.1-46.3); Red Blood Cell Count 3.51 M/mm3 (4.30-5.90); White Blood Cell Count 4.75 K/mm3 (4.00-11.30)
[2019-02-27 16:15] LABS: Alanine Aminotransfer (ALT/SGP 18 U/L (12-78); Albumin, Blood 2.7 g/dL (3.4-5.0); Albumin/Globulin Ratio 0.8 (0.8-1.8); Alk Phos 82 U/L (50-136); Anion Gap 6 mmol/L (6-16); Aspartate Aminotrans (AST/SGOT 18 U/L (12-37); Bilirubin, Total 0.6 mg/dL (0.1-1.0); Blood Urea Nitrogen 10 mg/dL (8-24); Bun/Creatinine Ratio 13.4 (12.0-20.0); CO2, Blood 22 mmol/L (21-32); Chloride, Blood 107 mmol/L (98-108); Creatinine, Blood 0.75 mg/dL (0.60-1.20); Globulin, Blood 3.4 g/dL (2.2-4.0); Glomerular Filtration Rate >60 (60-); Glucose, Blood 140 mg/dL (70-99); Potassium, Blood 4.3 mmol/L (3.5-5.5); Sodium, Blood 135 mmol/L (136-145); Total Protein, Blood 6.1 g/dL (6.4-8.2)
== END | disposition home or self-care (01) ==
LOC: LAB SHORT 15:20 → LAB 15:20
PROVIDERS: Internal Medicine Hematology & Oncology
DX: C61 Malignant neoplasm of prostate (principal)
CPT/HCPCS: 80053; 84153; 85025

== ENCOUNTER 2019-03-13 05:17 | Emergency (ER) | payer OTHER ==
[~2019-03-13] VITALS: Ht 182.9 cm; Wt 79.4 kg
[~2019-03-13 05:17] MED LIST changes: +BASAGLAR K100 UNIT/1 SC; -BASAGLAR K100 UNIT/1 SQ
== END 2019-03-13 10:05 | disposition home or self-care (01) ==
LOC: ER 05:17
DX: G89.3 Neoplasm related pain (acute) (chronic) (principal); C61 Malignant neoplasm of prostate; M79.605 Pain in left leg; M79.604 Pain in right leg; M25.559 Pain in unspecified hip; C79.51 Secondary malignant neoplasm of bone; E11.9 Type 2 diabetes mellitus without complications; Z95.0 Presence of cardiac pacemaker; Z79.899 Other long term (current) drug therapy; Z79.01 Long term (current) use of anticoagulants; Z79.4 Long term (current) use of insulin
CPT/HCPCS: 96374; 99283-25; J1170

== ENCOUNTER 2019-04-14 12:02 | Emergency (ER) | payer OTHER ==
[~2019-04-14] VITALS: Ht 182.9 cm; Wt 65.8 kg
[2019-04-14] MEDS ORDERED: MORPHINE PO (12:44)
[2019-04-14] MEDS ORDERED: MS Contin15 MG PO (15:30)
--- NOTE | 2019-04-14 15:44 | NUR ---
Initial Visit: ED Palliative Care Consult for Goals of Care and Pain Management. Spoke with Dr Baez, ED RN Pam Dangelo, and discussed case. Pt would benefit from conversation regarding goals of care including hospice as an option. Pt is known to this technical proposal writer from previous ED visits. Pt is resting on gurney upon arrival. and another family member present during visit. Pt requests to have his vital signs recorded and ED RN Pam Dangelo is agreeable. Pt reports 10/10 pain and receives Dilaudid and Zofran. Engaged in therapeutic discussion regarding goals of care. Discussed hospice and answered questions to clear some misconceptions regarding hospice. Pt states he feels his quality of life is still good and is not ready for hospice. He states he will be ready for hospice when he is telling him self enough is enough. Discussed with Pt's Rashida the importance of self care and suggested hiring an yarn bleaching machine operator for respite. Discussed pain management with Pt and Rashida. Pt currently has a 75mcg and 12mcg Fentanyl patch on. Pt reports little therapeutic benefit. Listened as Rashida reports Pt having significant weight loss. Pt appears to have little or no obvious fatty area on his upper torso. Rashida reports Pt's pain has significantly increased and over the last 2 days he has been taking 120mg of liquid morphine a day. Discussed options for changing pain medications including switching from Fentanyl patch to MS Contin for long acting relief. Pt is agreeable. Spoke with hospital pharmacist and discussed case including conversion from Fentanyl patch to MS Contin and therapeutic equivalent of breakthrough pain medication required. Called and spoke with Pt's PCP Dex Dee. Discussed case and Dex is agreeable to discontinue Fentanyl patch and start Pt on MS Contin 45mg BID. Dex also recommends increase of liquid morphine. Roxanol 5mg to 20mg Q 1 hour PRN for breakthrough pain is recommended. Dex reports plan to contact Pt on Wednesday. Spoke with Dr Baez and discussed recommendations. Dr Baez will write prescription orders for Roxanol and MS Contin as recommended. Plan is for Pt to discharge from ED. Spoke with ED RN Pam Dangelo and discussed plan. Pam Dangelo will educate Pt and on new pain regimen. Pt is at risk for constipation and should be monitored. Recommend Senna S 1 to 2 tablets BID for constipation. Palliative Care will remain available.
== END 2019-04-14 16:34 | disposition home or self-care (01) ==
LOC: ER 12:02
DX: G89.3 Neoplasm related pain (acute) (chronic) (principal); C61 Malignant neoplasm of prostate; C79.51 Secondary malignant neoplasm of bone; I10 Essential (primary) hypertension; I48.91 Unspecified atrial fibrillation; E11.9 Type 2 diabetes mellitus without complications; I25.2 Old myocardial infarction; Z79.899 Other long term (current) drug therapy; Z79.4 Long term (current) use of insulin; Z79.01 Long term (current) use of anticoagulants
CPT/HCPCS: 96374; 96375; 99282-25; J1170; J2405